=== PATIENT | male | born 1970 | race Caucasian/White ===

== ENCOUNTER 2018-07-27 20:33 | Inpatient (IN) ==
--- NOTE | 2018-07-27 20:59 | ED ---
HPI General Chief complaint: Respiratory Symptoms Stated complaint: Chest pain, SOB Time Seen by Provider: 07/27/18 20:49 Source: patient Mode of arrival: ambulatory Limitations: no limitations History of Present Illness HPI narrative: 47 YO M with PMH of CHF, A fib, CAD, current smoker presents to the ED for evaluation of 1 week history of worsening shortness of breath. He endorses a nonproductive cough and associated CP. He endorses worsening edema of the BLE. He states that he hasn't been able to smoke 2/2 SOB. He denies recent history of prolonged immobilization. He states that he hasn't taken any medications for "about 4 months" because his insurance ran out. He states that his father had an RI in his 80s. Related Data Allergies Allergy/AdvReac Type Severity Reaction Status Date / Time No Known Allergies Allergy Verified 07/09/18 01:49 Review of Systems ROS: all other systems reviewed are negative [facility] Medical History Medical History Atrial fibrillation (Acute) Congestive heart failure (CHF) (Acute) Heart disease (Acute) Social History Social History Substance History: Past History Smoking Status: Former smoker Tobacco Type: Cigarettes How Often Do You Have a Drink Containing Alcohol: Monthly or less Recent Travel in [facility] within the Last 8 Weeks: No Recent Out of Country Travel within the Last 8 Weeks: No Immunization History Tetanus Immunization: >5 Years Exam Narrative Exam Narrative: GENERAL: Well nourished, well developed anxious white male in [employer]. SKIN: Focused skin assessment warm/dry. HEAD: Atraumatic. Normocephalic. EYES: Pupils equal and round. No scleral icterus. No injection or drainage. ENT: No nasal bleeding or discharge. Mucous membranes pink and moist. NECK: Trachea midline. No JVD. CARDIOVASCULAR: Irregularly irregular rate and rhythm. No murmur appreciated. RESPIRATORY: No accessory muscle use. Coarse and wheezy lung sounds throughout. Breath sounds equal bilaterally. GASTROINTESTINAL: Abdomen soft, non-tender, nondistended. Hepatic and splenic margins not palpable. MUSCULOSKELETAL: No obvious deformities. No clubbing. No cyanosis. 2+ edema to the mid sarkar bilaterally. NEUROLOGICAL: Awake and alert. No obvious cranial nerve deficits. Motor grossly within normal limits. Normal speech. PSYCHIATRIC: Appropriate mood and affect; insight and judgment normal. Course Initial Documented Vital Signs Temperature 97.9 F 07/27/18 20:38 Pulse Rate 128 H 07/27/18 20:38 Respiratory Rate 28 H 07/27/18 20:38 Blood Pressure 137/75 07/27/18 20:38 Pulse Oximetry 98 07/27/18 20:38 Last Documented Vital Signs Temperature 97.9 F 07/27/18 20:38 Pulse Rate 119 H 07/27/18 21:14 Respiratory Rate 25 H 07/27/18 21:14 Blood Pressure 157/108 H 07/27/18 20:45 Pulse Oximetry 2 L 07/27/18 20:45 Medical Decision Making MANUEL Attestation MANUEL supervised visit: Yes Attestation: I, Dr. Paz, have reviewed the advance practice practitioner's documentation and am in agreement, met with the patient face to face, made the diagnosis, and the medical decision making was done by me. *My assessment and Findings: This patient has chest discomfort with elevated troponin. There are no ST elevations on EKG. Concern is for non-STEMI. He was given aspirin and beta-jordan and will plan to heparinize after checking coags. His A. fib is chronic. He will be put on Cardizem drip for rate control. He will be in [facility]. Case was discussed with cardiology. [facility] Narrative Medical decision making narrative: 47 YO M with PMH of CHF, A fib, CAD presents to the ED for evaluation of 1 week history of worsening SOB, non productive cough, CP and SOB. On presentation the patient is tachycardic with rate 128, tachypneic, O2 sats 98% ORA. Physical exam reveals an anxious white male, irregularly irregular heart rate, course and wheezy lung sounds and BLE edema to the mid shins. The patient was administered aspirin, duoneb x 1 and 20 mg Cardizem IV. EKG A fib, LAD. CXR without acute findings. Troponin 1.13. Dr. Paz and I discussed the patient. Plan to consult cardiology and admit. The patient is agreeable to this plan. Dr. Summers, cardiology, recommends Cardizem and Heparin drips, admission to [facility]. Cardizem and Heparin drips initiated. I spoke with Dr. Pal who agrees to accept the patient to the medical service. Please see medicine and cardiology notes for disposition. Medical Screen Exam Complete: Yes Emergency Medical Condition: Yes Differential Diagnosis Differential Diagnosis: CHF exacerbation versus PNA versus ACS versus other Lab Data Result diagrams: 07/27/18 20:50 07/27/18 20:50 Lab Results 07/27/18 07/27/18 07/27/18 Range/Units 20:50 20:50 20:50 WBC 11.0 (4.0-11.0) th/mm3 RBC 4.65 (4.50-5.90) mil/mm3 Hgb 14.8 (13.0-17.0) gm/dL Hct 43.0 (39.0-51.0) % MCV 92.5 (80.0-100.0) fL MCH 31.8 (27.0-34.0) pg MCHC 34.3 (32.0-36.0) % RDW 14.4 (11.6-17.2) % Plt Count 163 (150-450) th/mm3 MPV 9.9 (7.0-11.0) fL Neut % (Auto) 66.4 (16.0-70.0) % Lymph % (Auto) 24.4 (9.0-44.0) % [place] % (Auto) 7.0 (0.0-8.0) % Eos % (Auto) 1.2 (0.0-4.0) % Baso % (Auto) 1.0 (0.0-2.0) % Neut # (Auto) 7.3 (1.8-7.7) th/mm3 Lymph # (Auto) 2.7 (1.0-4.8) th/mm3 [place] # (Auto) 0.8 (0.0-0.9) th/mm3 Eos # (Auto) 0.1 (0.0-0.4) th/mm3 Baso # (Auto) 0.1 (0.0-0.2) th/mm3 WBC Differential . Differential Comment Auto diff final PT (9.8-11.6) sec INR Ratio APTT (23.4-31.7) sec D-Dimer Quant (PE/DVT) 0.76 H (0.00-0.50) mg/L FEU Sodium 141 (136-145) meq/L Potassium 4.1 (3.5-5.1) meq/L Chloride 109 H (98-107) meq/L Carbon Dioxide 26.0 (21.0-32.0) meq/L Anion Gap 6 (5-15) meq/L BUN 24 H (7-18) mg/dL Creatinine 1.30 (0.60-1.30) mg/dL Estimated GFR 59 L (>89) mL/min Random Glucose 118 H (74-106) mg/dL Calcium 8.5 (8.5-10.1) mg/dL Total Bilirubin 1.0 (0.2-1.0) mg/dL AST 24 (15-37) U/L ALT 31 (12-78) U/L Alkaline Phosphatase 72 (45-117) U/L Troponin I 1.13 H* (0.02-0.05) ng/mL B-Natriuretic Peptide (0-100) pg/mL Total Protein 7.4 (6.4-8.2) g/dL Albumin 3.6 (3.4-5.0) g/dL Urine Color (Yellw/Straw) Urine Clarity (Clear) Urine pH (5.0-8.5) Ur Specific [place] (1.002-1.035) Urine Protein (Neg-Trace) mg/dL Urine Glucose (UA) (Negative) mg/dL Urine Ketones (Negative) mg/dL Urine Occult Blood (Negative) Urine Nitrate (Negative) Urine Bilirubin (Negative) Urine Urobilinogen (Less than 2) mg/dL Ur Leukocyte Esterase (Negative) Urine RBC (0-3) /hpf Urine WBC (0-5) /hpf Ur Squamous Epith Cells (0-5) /hpf Urine Bacteria (None) /hpf Hyaline Casts (0-3) /lpf Urine Mucus (Occasional) /lpf Micro UA Comment Ur Microscopic Review Urine Culture Comments Urine Opiates Screen (Neg) Ur Barbiturates Screen (Neg) Ur Amphetamines Screen (Neg) U Benzodiazepines Scrn (Neg) Urine Cocaine Screen (Neg) U Cannabinoids Screen (Neg) 07/27/18 07/27/18 07/27/18 Range/Units 20:50 21:25 21:25 WBC (4.0-11.0) th/mm3 RBC (4.50-5.90) mil/mm3 Hgb (13.0-17.0) gm/dL Hct (39.0-51.0) % MCV (80.0-100.0) fL MCH (27.0-34.0) pg MCHC (32.0-36.0) % RDW (11.6-17.2) % Plt Count (150-450) th/mm3 MPV (7.0-11.0) fL Neut % (Auto) (16.0-70.0) % Lymph % (Auto) (9.0-44.0) % [place] % (Auto) (0.0-8.0) % Eos % (Auto) (0.0-4.0) % Baso % (Auto) (0.0-2.0) % Neut # (Auto) (1.8-7.7) th/mm3 Lymph # (Auto) (1.0-4.8) th/mm3 [place] # (Auto) (0.0-0.9) th/mm3 Eos # (Auto) (0.0-0.4) th/mm3 Baso # (Auto) (0.0-0.2) th/mm3 WBC Differential Differential Comment PT (9.8-11.6) sec INR Ratio APTT (23.4-31.7) sec D-Dimer Quant (PE/DVT) (0.00-0.50) mg/L FEU Sodium (136-145) meq/L Potassium (3.5-5.1) meq/L Chloride (98-107) meq/L Carbon Dioxide (21.0-32.0) meq/L Anion Gap (5-15) meq/L BUN (7-18) mg/dL Creatinine (0.60-1.30) mg/dL Estimated GFR (>89) mL/min Random Glucose (74-106) mg/dL Calcium (8.5-10.1) mg/dL Total Bilirubin (0.2-1.0) mg/dL AST (15-37) U/L ALT (12-78) U/L Alkaline Phosphatase (45-117) U/L Troponin I (0.02-0.05) ng/mL B-Natriuretic Peptide 909 H (0-100) pg/mL Total Protein (6.4-8.2) g/dL Albumin (3.4-5.0) g/dL Urine Color Yellow (Yellw/Straw) Urine Clarity Clear (Clear) Urine pH 5.0 (5.0-8.5) Ur Specific [place] 1.012 (1.002-1.035) Urine Protein Negative (Neg-Trace) mg/dL Urine Glucose (UA) Negative (Negative) mg/dL Urine Ketones Negative (Negative) mg/dL Urine Occult Blood Negative (Negative) Urine Nitrate Negative (Negative) Urine Bilirubin Negative (Negative) Urine Urobilinogen Less than 2 (Less than 2) mg/dL Ur Leukocyte Esterase Negative (Negative) Urine RBC 1 (0-3) /hpf Urine WBC Less than 1 (0-5) /hpf Ur Squamous Epith Cells <1 (0-5) /hpf Urine Bacteria Rare H (None) /hpf Hyaline Casts 4 (0-3) /lpf Urine Mucus Few H (Occasional) /lpf Micro UA Comment Culture not ind Ur Microscopic Review Not Reportable Urine Culture Comments Culture not ind Urine Opiates Screen Neg (Neg) Ur Barbiturates Screen Neg (Neg) Ur Amphetamines Screen Neg (Neg) U Benzodiazepines Scrn Neg (Neg) Urine Cocaine Screen Neg (Neg) U Cannabinoids Screen Neg (Neg) 07/27/18 Range/Units 22:18 WBC (4.0-11.0) th/mm3 RBC (4.50-5.90) mil/mm3 Hgb (13.0-17.0) gm/dL Hct (39.0-51.0) % MCV (80.0-100.0) fL MCH (27.0-34.0) pg MCHC (32.0-36.0) % RDW (11.6-17.2) % Plt Count (150-450) th/mm3 MPV (7.0-11.0) fL Neut % (Auto) (16.0-70.0) % Lymph % (Auto) (9.0-44.0) % [place] % (Auto) (0.0-8.0) % Eos % (Auto) (0.0-4.0) % Baso % (Auto) (0.0-2.0) % Neut # (Auto) (1.8-7.7) th/mm3 Lymph # (Auto) (1.0-4.8) th/mm3 [place] # (Auto) (0.0-0.9) th/mm3 Eos # (Auto) (0.0-0.4) th/mm3 Baso # (Auto) (0.0-0.2) th/mm3 WBC Differential Differential Comment PT 11.8 H (9.8-11.6) sec INR 1.2 Ratio APTT 24.4 (23.4-31.7) sec D-Dimer Quant (PE/DVT) (0.00-0.50) mg/L FEU Sodium (136-145) meq/L Potassium (3.5-5.1) meq/L Chloride (98-107) meq/L Carbon Dioxide (21.0-32.0) meq/L Anion Gap (5-15) meq/L BUN (7-18) mg/dL Creatinine (0.60-1.30) mg/dL Estimated GFR (>89) mL/min Random Glucose (74-106) mg/dL Calcium (8.5-10.1) mg/dL Total Bilirubin (0.2-1.0) mg/dL AST (15-37) U/L ALT (12-78) U/L Alkaline Phosphatase (45-117) U/L Troponin I (0.02-0.05) ng/mL B-Natriuretic Peptide (0-100) pg/mL Total Protein (6.4-8.2) g/dL Albumin (3.4-5.0) g/dL Urine Color (Yellw/Straw) Urine Clarity (Clear) Urine pH (5.0-8.5) Ur Specific [place] (1.002-1.035) Urine Protein (Neg-Trace) mg/dL Urine Glucose (UA) (Negative) mg/dL Urine Ketones (Negative) mg/dL Urine Occult Blood (Negative) Urine Nitrate (Negative) Urine Bilirubin (Negative) Urine Urobilinogen (Less than 2) mg/dL Ur Leukocyte Esterase (Negative) Urine RBC (0-3) /hpf Urine WBC (0-5) /hpf Ur Squamous Epith Cells (0-5) /hpf Urine Bacteria (None) /hpf Hyaline Casts (0-3) /lpf Urine Mucus (Occasional) /lpf Micro UA Comment Ur Microscopic Review Urine Culture Comments Urine Opiates Screen (Neg) Ur Barbiturates Screen (Neg) Ur Amphetamines Screen (Neg) U Benzodiazepines Scrn (Neg) Urine Cocaine Screen (Neg) U Cannabinoids Screen (Neg) Imaging Data Radiologist's impression: Chest X-Ray 07/27/18 20:49 CONCLUSION: Top normal heart. Clear lungs. ECG Data EKG Prior to Arrival: No Interpretation: EKG rate 140, a fib with RVR. Borderline LAD. NO acute St changes. Reviewed by Dr. Paz. Discharge Plan Discharge Disposition Patient Disposition: ED Admit(ED Internal Use Only) Discharge Order Discharge Orders: ED Use Only Admit Order (Routine); Ordered 07/27/18 Ordered By: Roberta Hernandez Physicians Team ED Provider: Nghia Paz ED Midlevel Provider: Roberta Hernandez Primary Care Provider: ROSY, Attending Provider: Alecia Pal Other Providers: Tyson Summers Discharge Interventions Interventions: Vital Signs Last Done: 07/27/18 20:45 Status ED Status: Admitted Patient
--- NOTE | 2018-07-27 21:16 | XR ---
EXAM DATE: 07/27/2018 9:13 PM EST AGE/SEX: 47 years / Male INDICATIONS: Short of breath. CLINICAL DATA: This is the patient's initial encounter. Patient reports that signs and symptoms have been present for 4 - 6 days and indicates a pain score of 2/10. MEDICAL/SURGICAL HISTORY: Congestive heart failure. . COMPARISON: No prior exams available for comparison. FINDINGS: A single AP view of the chest demonstrates the lungs to be symmetrically aerated without evidence of mass, infiltrate or effusion. Top normal heart size. No pulmonary vascular engorgement observed.. Os seous structures are intact. CONCLUSION: Top normal heart. Clear lungs. Electronically signed by: Aly Landers MD Board Certified Radiologist 07/27/2018 9:15 PM EST
[2018-07-27 21:20] LABS: Baso # (Auto) 0.1 th/mm3 (0.0-0.2); Eos # (Auto) 0.1 th/mm3 (0.0-0.4); Eos % (Auto) 1.2 % (0.0-4.0); Hemoglobin 14.8 gm/dL (13.0-17.0); Lymph # (Auto) 2.7 th/mm3 (1.0-4.8); Lymph % (Auto) 24.4 % (9.0-44.0); Mean Corpuscular HGB Conc 34.3 % (32.0-36.0); Mean Corpuscular Hemoglobin 31.8 pg (27.0-34.0); Mean Corpuscular Volume 92.5 fL (80.0-100.0); Mean Platelet Volume 9.9 fL (7.0-11.0); Mono # (Auto) 0.8 th/mm3 (0.0-0.9); Neut # (Auto) 7.3 th/mm3 (1.8-7.7); Neut % (Auto) 66.4 % (16.0-70.0); Platelet Count 163 th/mm3 (150-450); Red Blood Count 4.65 mil/mm3 (4.50-5.90); Red Cell Distribution Width 14.4 % (11.6-17.2)
[2018-07-27 21:42] LABS: Albumin 3.6 g/dL (3.4-5.0); Anion Gap 6 meq/L (5-15); Aspartate Aminotransferase 24 U/L (15-37); Blood Urea Nitrogen 24 mg/dL (7-18); Calcium 8.5 mg/dL (8.5-10.1); Chloride 109 meq/L (98-107); Glomerular Filtration Rate 59 mL/min (>89); Glucose,Random 118 mg/dL (74-106); Potassium 4.1 meq/L (3.5-5.1); Sodium 141 meq/L (136-145)
[2018-07-27 21:43] LABS: Alanine Aminotransferase 31 U/L (12-78)
[2018-07-27 21:46] LABS: Alkaline Phosphatase 72 U/L (45-117); Total Protein 7.4 g/dL (6.4-8.2)
[2018-07-27 21:49] LABS: Bacteria,Urine Rare /hpf; Bilirubin,Urine Negative (Negative); Clarity,Urine Clear (Clear); Color,Urine Yellow (Yellw/Straw); Glucose,Urine (UA) Negative (Negative); Hyaline Casts,Urine 4 /lpf (0-3); Leukocyte Esterase,Urine Negative (Negative); Mucus,Urine Few /lpf (Occasional); Nitrite,Urine Negative (Negative); Specific Gravity,Urine 1.012 (1.002-1.035); Squamous Epithelial Cell,Urine <1 /hpf (0-5)
[2018-07-27 21:50] LABS: Troponin I 1.13 ng/mL (0.02-0.05)
[2018-07-27 21:50] LABS: Amphetamine Screen,Urine Neg (Neg); Barbiturate Screen,Urine Neg (Neg); Cannabinoid Screen,Urine Neg (Neg); Cocaine Screen,Urine Neg (Neg)
[2018-07-27 21:51] LABS: Opiate Screen,Urine Neg (Neg)
[2018-07-27 22:44] LABS: Activated Partial Thrombo Time 24.4 sec (23.4-31.7); INR 1.2 Ratio; Prothrombin Time 11.8 sec (9.8-11.6)
[2018-07-27] MEDS ORDERED: Heparin 10,000 UNITS/10 ML Vial (for IV use) IV.PUSH STA (22:48)
[2018-07-27] MEDS ORDERED: Heparin Drip 25,000 UNIT/250 ML BAG IV.CONT PRN (22:48)
[2018-07-27] MEDS: dilTIAZem Inj 125 MG in Sodium Chlor 0.9% Inj 100 ML IV.CONT PRN (23:16)
[2018-07-27] MEDS ORDERED: Bisacodyl 10 MG Supp RECTAL PRN (23:54)
[2018-07-27] MEDS ORDERED: Acetaminophen 325 MG Tablet PO PRN (23:54)
--- NOTE | 2018-07-28 01:13 | P.HP ---
History of Present Illness Service: [facility] Primary Care Physician: UNKNOWN History of Present Illness: 47-year-old male with a past medical history significant for atrial fibrillation , coronary artery disease and CHF presents to the emergency department for the evaluation of bilateral lower extremity edema and shortness of breath with accompanying cough. The patient reports that he is supposed to be on Eliquis, metoprolol and Lasix however has been out of his medication for approximately 4 months due to insurance issues. He states he has had increasingly worsening bilateral lower extremity edema for the past week and corresponding shortness of breath with a nonproductive cough. He states he has chest pain but believes this is from his cough. His home visitor is in [place]. He is found to be in atrial fibrillation with RVR on his arrival to the emergency department. He denies any fevers/chills. No abdominal pain. No nausea/vomiting/diarrhea. No focal neurologic deficits. Inpatient Certification: I certify that the inpatient services were ordered in accordance with Medicare regulations governing the order. This includes certification that hospital inpatient services are reasonable and necessary and in the case of services not specified as inpatient-only under 42 CFR 419.22(n), that they are appropriately provided as inpatient services in accordance to with the 2-midnight benchmark under 43 CFR 412.3(e) Estimated Total Length of Stay (Days): 2 Plans for Post Hospital Care: Home Review of Systems All other systems reviewed negative except as stated in HPI [facility] - History History Provided By: Patient - Medical History Medical History: Medical History (Last Reviewed 07/28/18 @ 01:00 by Alecia Pal MD) Atrial fibrillation Congestive heart failure (CHF) Heart disease - Surgical History Surgical History: Surgical History (Last Updated 07/28/18 @ 01:00 by Alecia Pal MD) Status post cardiac catheterization - Family History Family History: Family History (Last Updated 07/28/18 @ 01:00 by Alecia Pal MD) Other Coronary artery disease - Tobacco History Tobacco Use In Past 30 Days: Yes Smoking Status: Former smoker Tobacco Type: Cigarettes - Alcohol History How Often Do You Have a Drink Containing Alcohol: Monthly or less - Substance Use History Substance History: Past History - Travel History Recent Travel in the [place] Within the Last 8 Weeks: No Recent Travel Out of the Country Within the Last 8 Weeks: No - Immunization History Tetanus Immunization: >5 Years Medications and Allergies Active Medications: Active Medications Acetaminophen (Tylenol) 650 mg PO Q4H PRN PRN Reason: Temp > 100.4 Al Hydroxide/Mg Hydroxide (Milk Of Magnesia Liq) 30 ml PO Q12H PRN PRN Reason: Mild Constipation Aspirin (Aspirin Chew) 162 mg PO DAILY LAMAR Bisacodyl (Dulcolax Supp) 10 mg RECTAL DAILY PRN PRN Reason: SEVERE CONSITIPATION Diltiazem HCl 125 mg/ Sodium (Chloride) 125 mls @ 5 mls/hr IV.CONT TITRATE PRN ; Protocol PRN Reason: Per Protocol Last Titration: 07/28/18 00:00 Dose: 10 mg/hr, 10 mls/hr Heparin Sodium/Dextrose (Heparin/D5w 25,000 U/250 Ml) 25,000 unit in 250 mls @ 0 mls/hr IV.CONT TITRATE PRN; Protocol PRN Reason: Per Protocol Last Admin: 07/27/18 23:11 Dose: 1,000 units/hr, 10 mls/hr Lactulose (Lactulose Liq) 30 ml PO DAILY PRN PRN Reason: SEVERE CONSITIPATION Ondansetron HCl (Zofran Inj) 4 mg IV.PUSH Q6H PRN PRN Reason: NAUSEA OR VOMITING Sennosides (Senokot) 17.2 mg PO Q12H PRN PRN Reason: Moderate Constipation Sodium Chloride (Ns Flush) 2 ml IV.FLUSH BID LAMAR Sodium Chloride (Ns Flush) 2 ml IV.FLUSH PRN PRN PRN Reason: FLUSH AFTER USING IV ACCESS Allergies Allergy/AdvReac Type Severity Reaction Status Date / Time No Known Allergies Allergy Verified 07/09/18 01:49 Exam Vital signs: Vital Signs 07/27/18 20:38 07/27/18 20:45 07/27/18 20:49 Temperature 97.9 F Pulse Rate 128 H 130 H Respiratory Rate 28 H 27 H Blood Pressure 137/75 157/108 H Pulse Oximetry 98 2 L 95 07/27/18 21:14 07/28/18 00:00 Temperature Pulse Rate 119 H 128 H Respiratory Rate 25 H 24 Blood Pressure 114/80 Pulse Oximetry 97 Intake & Output 07/27/18 07/27/18 07/28/18 06:59 18:59 06:59 Weight 136.078 kg Narrative: Gen.: No acute distress Head: Normocephalic. Atraumatic. EENT: Pupils equal round and reactive to light. Nose without drainage. Airway intact. Throat without injection. Cardiovascular: Tachycardic. Irregularly irregular rhythm. No murmurs, rubs or gallops. Respiratory: Lungs clear to auscultation bilaterally. No wheezes or rhonchi. Abdomen: Soft, nontender, nondistended. No peritoneal signs. Musculoskeletal: No gross deformities. No edema. Skin: No obvious rashes or erythema. Neuro: Sensory and motor grossly intact. Cranial nerves II through XII grossly intact. Results - Labs CBC & Chem 7: 07/27/18 20:50 07/27/18 20:50 Labs: Laboratory Results - last 24 hr 07/27/18 07/27/18 07/27/18 20:50 20:50 20:50 WBC 11.0 RBC 4.65 Hgb 14.8 Hct 43.0 MCV 92.5 MCH 31.8 MCHC 34.3 RDW 14.4 Plt Count 163 MPV 9.9 Neut % (Auto) 66.4 Lymph % (Auto) 24.4 [place] % (Auto) 7.0 Eos % (Auto) 1.2 Baso % (Auto) 1.0 Neut # (Auto) 7.3 Lymph # (Auto) 2.7 [place] # (Auto) 0.8 Eos # (Auto) 0.1 Baso # (Auto) 0.1 WBC Differential . Differential Comment Auto diff final PT INR APTT D-Dimer Quant (PE/DVT) 0.76 H Sodium 141 Potassium 4.1 Chloride 109 H Carbon Dioxide 26.0 Anion Gap 6 BUN 24 H Creatinine 1.30 Estimated GFR 59 L Random Glucose 118 H Calcium 8.5 Total Bilirubin 1.0 AST 24 ALT 31 Alkaline Phosphatase 72 Troponin I 1.13 H* B-Natriuretic Peptide Total Protein 7.4 Albumin 3.6 Urine Color Urine Clarity Urine pH Ur Specific [place] Urine Protein Urine Glucose (UA) Urine Ketones Urine Occult Blood Urine Nitrate Urine Bilirubin Urine Urobilinogen Ur Leukocyte Esterase Urine RBC Urine WBC Ur Squamous Epith Cells Urine Bacteria Hyaline Casts Urine Mucus Micro UA Comment Ur Microscopic Review Urine Culture Comments Urine Opiates Screen Ur Barbiturates Screen Ur Amphetamines Screen U Benzodiazepines Scrn Urine Cocaine Screen U Cannabinoids Screen 07/27/18 07/27/1807/27/18 20:50 21:25 21:25 WBC RBC Hgb Hct MCV MCH MCHC RDW Plt Count MPV Neut % (Auto) Lymph % (Auto) [place] % (Auto) Eos % (Auto) Baso % (Auto) Neut # (Auto) Lymph # (Auto) [place] # (Auto) Eos # (Auto) Baso # (Auto) WBC Differential Differential Comment PT INR APTT D-Dimer Quant (PE/DVT) Sodium Potassium Chloride Carbon Dioxide Anion Gap BUN Creatinine Estimated GFR Random Glucose Calcium Total Bilirubin AST ALT Alkaline Phosphatase Troponin I B-Natriuretic Peptide 909 H Total Protein Albumin Urine Color Yellow Urine Clarity Clear Urine pH 5.0 Ur Specific [place] 1.012 Urine Protein Negative Urine Glucose (UA) Negative Urine Ketones Negative Urine Occult Blood Negative Urine Nitrate Negative Urine Bilirubin Negative Urine Urobilinogen Less than 2 Ur Leukocyte Esterase Negative Urine RBC 1 Urine WBC Less than 1 Ur Squamous Epith Cells <1 Urine Bacteria Rare H Hyaline Casts 4 Urine Mucus Few H Micro UA Comment Culture not ind Ur Microscopic Review Not Reportable Urine Culture Comments Culture not ind Urine Opiates Screen Neg Ur Barbiturates Screen Neg Ur Amphetamines Screen Neg U Benzodiazepines Scrn Neg Urine Cocaine Screen Neg U Cannabinoids Screen Neg 07/27/18 22:18 WBC RBC Hgb Hct MCV MCH MCHC RDW Plt Count MPV Neut % (Auto) Lymph % (Auto) [place] % (Auto) Eos % (Auto) Baso % (Auto) Neut # (Auto) Lymph # (Auto) [place] # (Auto) Eos # (Auto) Baso # (Auto) WBC Differential Differential Comment PT 11.8 H INR 1.2 APTT 24.4 D-Dimer Quant (PE/DVT) Sodium Potassium Chloride Carbon Dioxide Anion Gap BUN Creatinine Estimated GFR Random Glucose Calcium Total Bilirubin AST ALT Alkaline Phosphatase Troponin I B-Natriuretic Peptide Total Protein Albumin Urine Color Urine Clarity Urine pH Ur Specific [place] Urine Protein Urine Glucose (UA) Urine Ketones Urine Occult Blood Urine Nitrate Urine Bilirubin Urine Urobilinogen Ur Leukocyte Esterase Urine RBC Urine WBC Ur Squamous Epith Cells Urine Bacteria Hyaline Casts Urine Mucus Micro UA Comment Ur Microscopic Review Urine Culture Comments Urine Opiates Screen Ur Barbiturates Screen Ur Amphetamines Screen U Benzodiazepines Scrn Urine Cocaine Screen U Cannabinoids Screen - Imaging Impressions Chest X-Ray 07/27/18 20:49 CONCLUSION: Top normal heart. Clear lungs. Caprini VTE Risk Assessment Caprini VTE Risk Assessment: No/Low Risk (score <= 1) Caprini Risk Assessment Model: Point Value = 1 Point Value = 2 Point Value = 3 Point Value = 5 Age 41-60 Minor surgery BMI > 25 kg/m2 Swollen legs Varicose veins or History of unexplained or recurrent spontaneous Oral contraceptives or hormone replacement Sepsis (< 1 month) Serious lung disease, including pneumonia (< 1 month) Abnormal pulmonary function Acute myocardial infarction Congestive heart failure (< 1 month) History of inflammatory bowel disease Medical patient at bed rest Age 61-74 Arthroscopic surgery Major open surgery (> 45 min) Laparoscopic surgery (> 45 min) Malignancy Confined to bed (> 72 hours) Immobilizing plaster cast Central venous access Age >= 75 History of VTE Family history of VTE Factor V Leiden Prothrombin [id number] Lupus anticoagulant Anticardiolipin antibodies Elevated serum homocysteine Heparin-induced thrombocytopenia Other congenital or acquired thrombophilia Stroke (< 1 month) Elective arthroplasty Hip, pelvis, or leg fracture Acute spinal cord injury (< 1 month) Prophylaxis Regimen: Total Risk Factor Score Risk Level Prophylaxis Regimen 0-1 Low Early ambulation 2 Moderate Order ONE of the following: *Sequential Compression Device (SCD) *Heparin 5000 units SQ BID 3-4 Higher Order ONE of the following medications: *Heparin 5000 units SQ TID *Enoxaparin/Lovenox 40 mg SQ daily (WT < 150 kg, CrCl > 30 mL/min) *Enoxaparin/Lovenox 30 mg SQ daily (WT < 150 kg, CrCl > 10-29 mL/min) *Enoxaparin/Lovenox 30 mg SQ BID (WT < 150 kg, CrCl > 30 mL/min) AND/OR *Sequential Compression Device (SCD) 5 or more Highest Order ONE of the following medications: *Heparin 5000 units SQ TID (Preferred with Epidurals) *Enoxaparin/Lovenox 40 mg SQ daily (WT < 150 kg, CrCl > 30 mL/min) *Enoxaparin/Lovenox 30 mg SQ daily (WT < 150 kg, CrCl > 10-29 mL/min) *Enoxaparin/Lovenox 30 mg SQ BID (WT < 150 kg, CrCl > 30 mL/min) AND *Sequential Compression Device (SCD) Assessment and Plan - Plan Assessment/plan: 1. NSTEMI/CAD Initial troponin 1.13 EKG shows atrial fibrillation with rapid ventricular response without ST segment elevation or depression, personally reviewed Heparin drip Etiology consulted, appreciate assistance 2. Atrial fibrillation with rapid ventricular response Patient with known history of A. fib Is supposed to be anticoagulated on Eliquis however has been out of his medication for the past 4 months Resume Eliquis Diltiazem drip -wean as tolerated Resume metoprolol 3. CHF exacerbation Patient with bilateral lower extremity edema and BNP of 909 IV Lasix FEN N.p.o. Electrolytes: Monitor and replete as needed Heparin drip
[2018-07-28] MEDS: Metoprolol Tartrate 25 MG Tablet PO SCH ×2 (01:15→10:15)
[2018-07-28] MEDS: Morphine Inj 4 MG/ML Vial IV.PUSH PRN ×4 (01:30→21:44)
[2018-07-28 04:39] LABS: Troponin I 0.93 ng/mL (0.02-0.05)
[2018-07-28 05:12] LABS: Calcium 8.6 mg/dL (8.5-10.1); Carbon Dioxide 23.4 meq/L (21.0-32.0); Potassium 4.3 meq/L (3.5-5.1)
[2018-07-28 05:30] LABS: Baso # (Auto) 0.2 th/mm3 (0.0-0.2); Eos # (Auto) 0.2 th/mm3 (0.0-0.4); Eos % (Auto) 1.4 % (0.0-4.0); Hematocrit 43.4 % (39.0-51.0); Hemoglobin 14.7 gm/dL (13.0-17.0); Lymph # (Auto) 2.8 th/mm3 (1.0-4.8); Lymph % (Auto) 23.2 % (9.0-44.0); Mean Corpuscular Hemoglobin 31.8 pg (27.0-34.0); Mean Corpuscular Volume 93.4 fL (80.0-100.0); Mean Platelet Volume 9.8 fL (7.0-11.0); Mono # (Auto) 0.7 th/mm3 (0.0-0.9); Mono % (Auto) 6.1 % (0.0-8.0); Neut # (Auto) 8.1 th/mm3 (1.8-7.7); Neut % (Auto) 67.3 % (16.0-70.0); Platelet Count 160 th/mm3 (150-450); Red Blood Count 4.64 mil/mm3 (4.50-5.90); Red Cell Distribution Width 14.8 % (11.6-17.2)
[2018-07-28 10:10] LABS: Troponin I 0.69 ng/mL (0.02-0.05)
[2018-07-28] MEDS: ALPRAZolam 0.25 MG Tablet PO PRN ×2 (10:14→20:32)
[2018-07-28] MEDS: dilTIAZem Inj 125 MG in Sodium Chlor 0.9% Inj 100 ML IV.CONT PRN (10:15)
--- NOTE | 2018-07-28 15:34 | ECG ---
Date Performed: 07/28/2018 Time Performed: 03:18:11 PTAGE: 47 years EKG: ATRIAL FIBRILLATION WITH RAPID VENTRICULAR RESPONSE WITH ABERRANT CONDUCTION OR VENTRICULAR PREMATURE COMPLEXES BORDERLINE LEFT AXIS DEVIATION ABNORMAL RHYTHM ECG Compared to PREVIOUS TRACING , PVCs are new, heart rate is somewhat slower. PREVIOUS TRACIN 018 20.53 DOCTOR: Ambrosio Rubalcava Interpretating Date/Time 07/28/2018 15:33:24
--- NOTE | 2018-07-28 15:34 | ECG ---
Date Performed: 07/27/2018 Time Performed: 20:53:59 PTAGE: 47 years EKG: ATRIAL FIBRILLATION WITH RAPID VENTRICULAR RESPONSE BORDERLINE LEFT AXIS DEVIATION ABNORMAL RHYTHM ECG NO PREVIOUS TRACING DOCTOR: Ambrosio Rubalcava Interpretating Date/Time 07/28/2018 15:32:57
[2018-07-28] MEDS ORDERED: Amiodarone Inj 150 MG in Dextrose 5% in Water Inj 97 ML IV.SIG ONE ×2 (17:00)
--- NOTE | 2018-07-28 17:03 | MB ---
cc: Vik Maher MD DATE: 07/28/2018 REASON FOR CONSULTATION: Atrial fibrillation, congestive heart failure. HISTORY OF PRESENT ILLNESS: The patient is a 47-year-old white male with a history of nonischemic cardiomyopathy, ejection fraction of 30% to 40% according to the patient, diagnosed 2 years ago in [place], with cardiac catheterization at that time showing no high-grade coronary artery disease, history of paroxysmal atrial fibrillation, who presented to the hospital with increasing shortness of breath, nonproductive cough, pedal edema. The patient states for the past few weeks he has been having increasing dyspnea with minimal exertion. Over the last few days, he has had a nonproductive cough. At times, he experiences paroxysmal nocturnal dyspnea. He became most concerned as he also developed significant orthopnea in the last several days, having to sit up to catch his breath. He denies any chest pains, except with cough. He also denies dizziness, syncope, near syncope, palpitations. He reports compliance with a no added salt diet, although he has not been on any medications for the past few months due to lack of insurance. PAST MEDICAL HISTORY: As above. No other details are currently available. CARDIAC MEDICATIONS AT HOME: None. CARDIAC MEDICATIONS HERE IN THE HOSPITAL: 1. Cardizem drip. 2. Apixaban 5 mg p.o. b.i.d. 3. Aspirin 162 mg p.o. daily. 4. Furosemide 40 mg IV b.i.d. 5. Metoprolol tartrate 25 mg p.o. b.i.d. ALLERGIES: NO KNOWN DRUG ALLERGIES. FAMILY HISTORY: There is no significant family history of early myocardial infarction. SOCIAL HISTORY: The patient quit smoking 2 weeks ago. He drinks occasional alcohol. REVIEW OF SYSTEMS: As in history of present illness, otherwise negative or noncontributory. He also denies headache, abdominal pain, melena, dyspepsia, bright red blood per rectum. PHYSICAL EXAMINATION: VITAL SIGNS: His blood pressure 116/70 with a pulse of 83, respirations 20. GENERAL: He is a well-developed, well-nourished white male, in no acute distress. HEENT: Jugular venous pressure is normal. Carotid pulses are 2+ bilaterally and without bruits. CHEST: Reveals clear lung martin. CARDIAC: He has an irregularly irregular rhythm without S3 or murmur. ABDOMEN: He has a soft, nontender, obese abdomen. Bowel sounds are present. There is no definite hepatosplenomegaly. EXTREMITIES: Reveals no clubbing or cyanosis. There is trace to 1+ pretibial edema bilaterally. DIAGNOSTIC DATA: EKG shows atrial fibrillation, poor R-wave progression, nonspecific high lateral T-wave abnormalities. Chest x-ray shows no acute disease. LABORATORY DATA: WBC 12, hemoglobin 14.7, platelets 160,000. INR 1.2. Potassium 4.3, BUN 24, creatinine 1.32. Troponin 1.13, CK 202. IMPRESSION: Atrial fibrillation, congestive heart failure, slightly abnormal troponin levels in this 47-year-old white male with a history of nonischemic cardiomyopathy apparently diagnosed 2 years ago in [place] with cardiac catheterization at that time showing no high-grade coronary artery disease and echocardiogram according to the patient showing ejection fraction of 30% to 40%. The patient also notes a history of paroxysmal atrial fibrillation, although he states he has usually no symptoms associated with this dysrhythmia. At this time, he remains in atrial fibrillation with controlled heart rates although on intravenous Cardizem and oral metoprolol. Unfortunately, he has been off all medications for the last several months including Eliquis. Overall, I doubt these slight abnormalities in troponin levels are due to acute coronary syndrome. He has had no angina symptoms. His chest pain only occurs with cough. He reports a cardiac catheterization showing only mild disease 2 years ago. EKG shows only nonspecific ST and T-wave abnormalities. His congestive heart failure appears to be mostly right-sided in nature. His chest x-ray is clear and his lungs are clear to auscultation. Also of note, on monitoring today, he did have a 14-beat run of wide complex tachycardia, most likely ventricular tachycardia. RECOMMENDATIONS: 1. Continue intravenous furosemide diuresis. 2. Continue metoprolol, increasing the dosage as much as possible. 3. Add an CHENTE inhibitor. 4. Apparently, the patient will have insurance activated on 08/09/2018, so would continue with apixaban 5 mg p.o. b.i.d. 5. In light of the nonsustained ventricular tachycardia and likely reduced ejection fraction, would recommend intravenous amiodarone. 6. Check a 2-D echo to assess his left ventricular function, which I suspect is at least moderately reduced. MD GUZMAN Maynard/vladislav , 04:35 PM , 04:48 PM [facility]
[2018-07-28] MEDS ORDERED: Metoprolol Tartrate 25 MG Tablet PO SCH (21:00)
[2018-07-29] MEDS: ALPRAZolam 0.25 MG Tablet PO PRN ×3 (01:17→21:14)
[2018-07-29 05:21] LABS: Baso % (Auto) 0.3 % (0.0-2.0); Eos % (Auto) 0.1 % (0.0-4.0); Hematocrit 47.2 % (39.0-51.0); Hemoglobin 15.9 gm/dL (13.0-17.0); Lymph # (Auto) 1.6 th/mm3 (1.0-4.8); Lymph % (Auto) 10.3 % (9.0-44.0); Mean Corpuscular HGB Conc 33.8 % (32.0-36.0); Mean Corpuscular Volume 94.5 fL (80.0-100.0); Mean Platelet Volume 10.2 fL (7.0-11.0); Mono # (Auto) 1.4 th/mm3 (0.0-0.9); Mono % (Auto) 8.7 % (0.0-8.0); Neut # (Auto) 12.8 th/mm3 (1.8-7.7); Neut % (Auto) 80.6 % (16.0-70.0); Platelet Count 107 th/mm3 (150-450); Red Blood Count 4.99 mil/mm3 (4.50-5.90); Red Cell Distribution Width 15.4 % (11.6-17.2); White Blood Count 15.9 th/mm3 (4.0-11.0)
[2018-07-29 05:49] LABS: Alanine Aminotransferase 173 U/L (12-78); Albumin 4.1 g/dL (3.4-5.0); Alkaline Phosphatase 81 U/L (45-117); Anion Gap 13 meq/L (5-15); Aspartate Aminotransferase 211 U/L (15-37); Blood Urea Nitrogen 30 mg/dL (7-18); Calcium 8.6 mg/dL (8.5-10.1); Carbon Dioxide 19.2 meq/L (21.0-32.0); Chloride 102 meq/L (98-107); Glomerular Filtration Rate 29 mL/min (>89); Glucose,Random 106 mg/dL (74-106); Potassium 5.3 meq/L (3.5-5.1); Sodium 134 meq/L (136-145); Total Protein 7.9 g/dL (6.4-8.2); Troponin I 0.54 ng/mL (0.02-0.05)
[2018-07-29 06:07] LABS: ABG PCO2 33 mmHg (38-42); ABG PO2 74 mmHG (61-120)
--- NOTE | 2018-07-29 06:22 | XR ---
EXAM DATE: 07/29/2018 5:52 AM EST AGE/SEX: 47 years / Male INDICATIONS: Infiltrate. CLINICAL DATA: This is the patient's subsequent encounter. Patient reports that signs and symptoms h ave been present for 1 week and indicates a pain score of 0/10. MEDICAL/SURGICAL HISTORY: Congestive heart failure. None. COMPARISON: [facility] [place]ST 1V SINGLE AP, 07/27/2018. . FINDINGS: A single AP view of the chest demonstrates the lungs to be symmetrically aerated without evidence of mass, infiltrate or effusion. The cardiomediastinal contours are unremarkable. Osseous structures a re intact. CONCLUSION: The lungs are clear. Electronically signed by: Giovani Mckeon MD Board Certified Radiologist 07/29/2018 6:21 AM EST
--- NOTE | 2018-07-29 08:02 | P.PNCA ---
Subjective Interval history: Somnolent. Denies CP, dyspnea, dizziness, palpitations. Medications and Allergies Active Medications: Active Medications Acetaminophen (Tylenol) 650 mg PO Q4H PRN PRN Reason: Temp > 100.4 Al Hydroxide/Mg Hydroxide (Milk Of Magnesia Liq) 30 ml PO Q12H PRN PRN Reason: Mild Constipation Albuterol (Duoneb Neb (Prn)) 1 ampul NEB Q4HR NEB PRN PRN Reason: WHEEZING Last Admin: 07/29/18 00:33 Dose: 1 ampul Alprazolam (Xanax) 0.25 mg PO Q4H PRN PRN Reason: ANXIETY Last Admin: 07/29/18 01:17 Dose: 0.25 mg Apixaban (Eliquis) 5 mg PO BID [facility] Last Admin: 07/28/18 20:32 Dose: 5 mg Aspirin (Aspirin Chew) 81 mg PO DAILY [facility] Last Admin: 07/28/18 16:33 Dose: Not Given Bisacodyl (Dulcolax Supp) 10 mg RECTAL DAILY PRN PRN Reason: SEVERE CONSITIPATION Enalapril Maleate (Vasotec) 5 mg PO DAILY [facility] Furosemide (Lasix Inj) 40 mg IV.PUSH BID@0900,1800 [facility] Last Admin: 07/28/18 17:31 Dose: 40 mg Amiodarone HCl 450 mg/ (Dextrose) 250 mls @ 33.33 mls/hr IV.CONT TITRATE PRN; Protocol PRN Reason: Per Protocol Last Titration: 07/29/18 06:27 Dose: 0.5 mg/min, 16.66 mls/hr Lactulose (Lactulose Liq) 30 ml PO DAILY PRN PRN Reason: SEVERE CONSITIPATION Metoprolol Tartrate (Lopressor) 50 mg PO BID [facility] Last Admin: 07/28/18 20:32 Dose: 50 mg Morphine Sulfate (Morphine Inj) 4 mg IV.PUSH Q4H PRN PRN Reason: pain 6-10 Last Admin: 07/28/18 21:44 Dose: 4 mg Ondansetron HCl (Zofran Inj) 4 mg IV.PUSH Q6H PRN PRN Reason: NAUSEA OR VOMITING Last Admin: 07/28/18 17:24 Dose: 4 mg Sennosides (Senokot) 17.2 mg PO Q12H PRN PRN Reason: Moderate Constipation Sodium Chloride (Ns Flush) 2 ml IV.FLUSH BID [facility] Last Admin: 07/28/18 20:35 Dose: 2 ml Sodium Chloride (Ns Flush) 2 ml IV.FLUSH PRN PRN PRN Reason: FLUSH AFTER USING IV ACCESS Allergies Allergy/AdvReac Type Severity Reaction Status Date / Time No Known Allergies Allergy Verified 07/09/18 01:49 Home Medications Medication Instructions Recorded Confirmed Type Lasix 50 mg PO DAILY 07/28/18 07/28/18 History Physical Exam Vital signs: Vital Signs 07/28/18 08:00 07/28/18 09:10 07/28/18 11:00 Temperature 98.5 F Pulse Rate 100 H 99 H Respiratory Rate 20 Blood Pressure 123/71 Pulse Oximetry 97 97 07/28/18 12:00 07/28/18 15:00 07/28/18 15:31 Temperature 97.7 F 98.0 F Pulse Rate 99 H 83 83 Respiratory Rate 22 20 Blood Pressure 155/87 H 116/71 Pulse Oximetry 93 L 98 07/28/18 19:00 07/28/18 20:00 07/28/18 21:48 Temperature 97.5 F L Pulse Rate 117 H 114 H Respiratory Rate 24 22 Blood Pressure 129/89 Pulse Oximetry 98 07/28/18 23:00 07/29/18 00:00 07/29/18 00:24 Temperature 97 F L Pulse Rate 111 H 111 H Respiratory Rate 24 Blood Pressure 116/70 Pulse Oximetry 96 97 07/29/18 00:38 07/29/18 03:00 07/29/18 04:00 Temperature 96 F L Pulse Rate 102 H 111 H 114 H Respiratory Rate 18 24 Blood Pressure 128/94 H Pulse Oximetry 94 L 94 L 95 07/29/18 06:37 07/29/18 07:27 07/29/18 07:31 Temperature Pulse Rate 111 H Respiratory Rate 23 Blood Pressure Pulse Oximetry 97 97 07/29/18 07:47 Temperature Pulse Rate Respiratory Rate 28 H Blood Pressure Pulse Oximetry 95 Intake & Output 07/28/18 07/29/18 07/29/18 18:59 06:59 18:59 Intake Total 1245 / 1245 710 / 710 Output Total 725 / 725 250 / 250 Balance 520 / 520 460 / 460 Weight 138 kg Intake: IV 345 / 345 350 / 350 Cordarone Inj 450 MG In D5W Inj 350 / 350 241 ML @ 1 MG/MIN 33.33 mls/hr IV.CONT TITRATE PRN Rx#: [id number] Heparin/D5W 25,000 U/250 mL 25, 0 / 0 000 unit In 250 ml @ Per Protocol IV.CONT TITRATE PRN Rx #:[id number] Cardizem Inj 125 MG In NS Inj 245 / 245 100 ML @ 5 MG/HR 5 mls/hr IV. CONT TITRATE PRN Rx#:[id number] Cordarone Inj 150 MG In D5W Inj 100 / 100 97 ML @ 600 mls/hr IV.SIG ONCE ONE Rx#:[id number] Oral 900 / 900 360 / 360 Output: Urine 725 / 725 250 / 250 Other: Date of Last Bowel Movement 07/27/18 # Bowel Movements 0 0 - Constitutional no acute distress, somnolent - Routine Neck Exam Absent: JVD - Routine Respiratory Exam Present: CTA bilaterally - Routine Cardiovascular Exam Present: S1, S2, irregular rhythm. Absent: murmur, gallop - Routine Abdominal Exam Present: soft, normoactive bowel sounds. Absent: tenderness, organomegaly - Routine Extremities Exam Present: edema. Absent: cyanosis, clubbing Comments: Trace to 1+ pedal edema. Results 07/29/18 03:10 07/29/18 03:10 Cardiac Enzymes 07/27/18 07/27/18 07/28/18 Range/Units 20:50 20:50 03:24 AST 24 (15-37) U/L Troponin I 1.13 H* 0.93 H* (0.02-0.05) ng/mL B-Natriuretic Peptide 909 H (0-100) pg/mL 07/28/18 07/28/18 07/29/18 Range/Units 03:24 08:32 03:10 AST 211 H (15-37) U/L Troponin I Cancelled 0.69 H* 0.54 H (0.02-0.05) ng/mL B-Natriuretic Peptide (0-100) pg/mL Coagulation 07/27/18 07/27/18 07/28/18 Range/Units 20:50 22:18 05:09 PT 11.8 H (9.8-11.6) sec APTT 24.4 26.0 (23.4-31.7) sec B-Natriuretic Peptide 909 H (0-100) pg/mL 07/28/18 Range/Units 11:23 PT (9.8-11.6) sec APTT 26.2 (23.4-31.7) sec B-Natriuretic Peptide (0-100) pg/mL CBC 07/27/18 07/28/18 07/29/18 Range/Units 20:50 05:09 03:10 WBC 11.0 12.0 H 15.9 H (4.0-11.0) th/mm3 RBC 4.65 4.64 4.99 (4.50-5.90) mil/mm3 Hgb 14.8 14.7 15.9 (13.0-17.0) gm/dL Hct 43.0 43.4 47.2 (39.0-51.0) % Plt Count 163 160 107 L D (150-450) th/mm3 Neut # (Auto) 7.3 8.1 H 12.8 H (1.8-7.7) th/mm3 Lymph # (Auto) 2.7 2.8 1.6 (1.0-4.8) th/mm3 Dukes # (Auto) 0.8 0.7 1.4 H (0.0-0.9) th/mm3 Eos # (Auto) 0.1 0.2 0.0 (0.0-0.4) th/mm3 Baso # (Auto) 0.1 0.2 0.0 (0.0-0.2) th/mm3 Comprehensive Metabolic Panel 07/27/18 07/28/18 07/29/18 Range/Units 20:50 03:24 03:10 Sodium 141 141 134 L (136-145) meq/L Potassium 4.1 4.3 5.3 H D (3.5-5.1) meq/L Chloride 109 H 108 H 102 (98-107) meq/L Carbon Dioxide 26.0 23.4 19.2 L (21.0-32.0) meq/L BUN 24 H 24 H 30 H (7-18) mg/dL Creatinine 1.30 1.32 H 2.36 H (0.60-1.30) mg/dL Calcium 8.5 8.6 8.6 (8.5-10.1) mg/dL AST 24 211 H (15-37) U/L ALT 31 173 H (12-78) U/L Alkaline Phosphatase 72 81 (45-117) U/L Total Protein 7.4 7.9 (6.4-8.2) g/dL Albumin 3.6 4.1 (3.4-5.0) g/dL Intake and Output 07/28/18 07/29/18 07/29/18 22:59 06:59 14:59 Intake Total 1120 / 1120 710 / 710 Output Total 725 / 725 250 / 250 Balance 395 / 395 460 / 460 Intake: IV 220 / 220 350 / 350 Cordarone Inj 450 MG In D5W Inj 350 / 350 241 ML @ 1 MG/MIN 33.33 mls/hr IV.CONT TITRATE PRN Rx#: [id number] Heparin/D5W 25,000 U/250 mL 25, 0 / 0 000 unit In 250 ml @ Per Protocol IV.CONT TITRATE PRN Rx #:[id number] Cardizem Inj 125 MG In NS Inj 120 / 120 100 ML @ 5 MG/HR 5 mls/hr IV. CONT TITRATE PRN Rx#:[id number] Cordarone Inj 150 MG In D5W Inj 100 / 100 97 ML @ 600 mls/hr IV.SIG ONCE ONE Rx#:[id number] Oral 900 / 900 360 / 360 Output: Urine 725 / 725 250 / 250 Other: Date of Last Bowel Movement 07/27/18 # Bowel Movements 0 0 Weight 138 kg - Imaging and Cardiology Imaging: Impressions Chest X-Ray 07/27/18 20:49 CONCLUSION: Top normal heart. Clear lungs. Chest X-Ray 07/29/18 05:32 CONCLUSION: The lungs are clear. Assessment and Plan - Assessment (1) Nonischemic cardiomyopathy Code(s): I42.8 - Other cardiomyopathies Status: Chronic Plan: Clinically stable and improved since admission. Rising renal indices now, possibly prerenal azotemia. Echo pending. RECOMMEND hold CHENTE-I, hold furosemide, follow up BMP's, continue metoprolol ( increase dosing). Dr. Summers to see as needed over the weekend. Would not discharge before Wednesday. OK to move to step down [facility] unit. (2) Nonsustained ventricular tachycardia Code(s): I47.2 - Ventricular tachycardia Status: Acute Plan: 14 beat run of very fast VT yesterday, none since. Recommend continue IV Amiodarone another 48 hours. (3) Atrial fibrillation Code(s): I48.91 - Unspecified atrial fibrillation Status: Acute Plan: Remains in atrial fib. HR's occasionally mildly elevated. Patient asymptomatic. Thromboembolic risk high. RECOMMEND increase metoprolol dosing, to continue IV Amiodarone as for his non- sustained VT, consider holding apixaban with rising renal indices. (4) Elevated troponin Code(s): R74.8 - Abnormal levels of other serum enzymes Status: Acute Plan: Minimal troponin elevations. Doubt due to ACS. No definite angina symptoms. Patient reports unremarkable cath in [place] 2 years ago. - Plan Code Status: full code Discussed Condition With: patient (3) Atrial fibrillation Qualifiers: Atrial fibrillation type: paroxysmal Qualified Code(s): I48.0 - Paroxysmal atrial fibrillation
--- NOTE | 2018-07-29 09:29 | P.PNIM ---
Subjective Interval history: Nausea present this morning. No other complaints. No chest pain. Tachycardia remains but is improved compared to time of admit. Physical Exam Vital signs: Last Vital Signs Temp 97.3 F L 07/29/18 08:11 Pulse 111 H 07/29/18 08:11 Resp 27 H 07/29/18 08:11 BP 98/67 L 07/29/18 08:11 Pulse Ox 99 07/29/18 08:11 Intake & Output 07/27/18 07/28/18 07/29/18 07/30/18 06:59 06:59 06:59 06:59 Intake Total 156 / 156 1954 Output Total 200 / 200 975 / 975 Balance -44 / -44 980 / 980 Weight 136.5 kg 138 kg Narrative: GENERAL: NAD, A&Ox3 HEAD: Normocephalic. NECK: Supple, trachea midline. No lymphadenopathy. EYES: No scleral icterus. No injection or drainage. CARDIOVASCULAR: Tachycardia rate and rhythm without murmurs, gallops, or rubs. RESPIRATORY: Breath sounds equal bilaterally. No accessory muscle use. GASTROINTESTINAL: Abdomen soft, non-tender, nondistended. MUSCULOSKELETAL: No cyanosis, or edema. SKIN: Warm and dry. NEURO: No focal neurological deficits. Results Labs CBC & Chem 7: 07/29/18 03:10 07/29/18 03:10 Imaging Imaging: Impressions Chest X-Ray 07/29/18 05:32 CONCLUSION: The lungs are clear. Assessment and Plan (1) Nonischemic cardiomyopathy: Code(s): I42.8 - Other cardiomyopathies Status: Chronic (2) Nonsustained ventricular tachycardia: Code(s): I47.2 - Ventricular tachycardia Status: Acute (3) Atrial fibrillation: Code(s): I48.91 - Unspecified atrial fibrillation Status: Acute (4) Elevated troponin: Code(s): R74.8 - Abnormal levels of other serum enzymes Status: Acute Plan 47-year-old male admitted secondary to atrial fibrillation with RVR and elevated troponins NSTEMI/CAD likely demand ischemia Initial troponin 1.13, downward trend since admission No plan for heart cath Echocardiogram pending Continue heparin drip Cardiology following Rate control Atrial fibrillation with rapid ventricular response Patient with known history of A. fib Continue Eliquis Continue amiodarone drip Follow on telemetry Possible CHF exacerbation Echocardiogram ordered May have been related to tachycardia Echocardiogram DVT prophylaxis Heparin Progress Note: Quality VTE Deep Vein Thrombosis/Pulmonary Embolism Present on Admission: No _ (1) Atrial fibrillation Qualifiers: Atrial fibrillation type: paroxysmal Qualified Code(s): I48.0 - Paroxysmal atrial fibrillation
--- NOTE | 2018-07-29 09:51 | ECG ---
Date Performed: 07/28/2018 Time Performed: 15:58:48 PTAGE: 47 years EKG: Atrial fibrillation Left axis deviation Abnormal ECG PREVIOUS TRACING : 07/28/2018 03.18 DOCTOR: Giovani Carcamo Interpretating Date/Time 07/29/2018 09:50:31
[2018-07-29 10:53] LABS: ABG Base Excess -11.8 mmol/L (-2-2); ABG PCO2 24 mmHg (38-42); ABG PO2 121 mmHG (61-120)
--- NOTE | 2018-07-29 12:22 | US ---
EXAM DATE: 07/29/2018 12:19 PM EST AGE/SEX: 47 years / Male INDICATIONS: Increased Bun and Creatinine. CLINICAL DATA: This is the patient's initial encounter. Patient reports that signs and symptoms have been present for 1 day and indicates a pain score of 4/10. MEDICAL/SURGICAL HISTORY: . Afib. CHF. . Cardiac catheterization. COMPARISON: No prior exams available for comparison. MEASUREMENTS: Right Kidney:__10.8 x 5.5 x 4.9 cm Left Kidney:__11.9 x 5.4 x 5.7 cm FINDINGS: Right Kidney: Normal echogenicity and cortical thickness. No mass or hydronephrosis. Left Kidney: Normal echogenicity and cortical thickness. No mass or hydronephrosis. Bladder: Decompressed. Not well evaluated. Other: None. CONCLUSION: 1. Normal renal ultrasound Electronically signed by: Clarence Mcduffie MD Board Certified Radiologist 07/29/2018 12:20 PM EST
[2018-07-29] MEDS ORDERED: Sodium Bicarbonate 8.4% Inj 50 MEQ/50 ML Syringe ONE (12:28)
[2018-07-29] MEDS: Sodium Bicarbonate 8.4% Inj 75 MEQ in Sod Chloride 0.9% Inj 925 ML IV.CONT SCH ×2 (13:31→16:57)
--- NOTE | 2018-07-29 16:52 | MB ---
cc: Andrea Hector MD DATE: 07/22/2018 REASON FOR CONSULTATION: Elevated BUN and creatinine with acute kidney injury. HISTORY OF PRESENT ILLNESS: This is a 47-year-old male with past medical history of ischemic heart disease, atrial fibrillation, congestive heart failure, possible chronic kidney disease. We do not have any baseline creatinine. He came to the hospital complaining of swelling of the lower leg and shortness of breath. I was called to see the patient because of elevated BUN and creatinine. The patient had creatinine of 1.3 on admission and it has gone up to 2.3. The patient denies any previous known history of renal disease, but according to him, he has off and on swelling in the legs and he takes Lasix at home. He is on other medications including metoprolol and he could not get it for the last 4-5 months because of the insurance problem, and noticed more increased swelling of his legs for the last few days. He denies taking any nonsteroid anti-inflammatory drugs. There is no history of nausea, vomiting. There is no history of diarrhea. When the patient arrived to the hospital, he was found in atrial fibrillation with rapid ventricular rate and his blood pressure has been on the lower side and lowest recorded was 94/39 today in the afternoon. His heart rate has been controlled now. Cardiology is following him. He has decreased urine output since morning, only passed 50 mL. and ultrasound did not show any urine in the bladder. The patient is not eating well. He has no nausea or vomiting. His breathing is still the same, slightly better and still has swelling in the legs. PAST MEDICAL HISTORY: Ischemic heart disease, atrial fibrillation, congestive heart failure, possible chronic kidney disease. PAST SURGICAL HISTORY: History of cardiac catheterization done in the past. REVIEW OF SYSTEMS: The patient has generalized weakness, feeling tired, has decreased appetite, occasional nausea. There is no vomiting. He has shortness of breath, more with exertion. No chest pain. No palpitation. No vomiting. No abdominal pain. No history of diarrhea. No history of dysuria or hematuria. Not taking any nonsteroid anti-inflammatory drugs. SOCIAL HISTORY: The patient is and has a past history of smoking. No history of heavy alcoholism. FAMILY HISTORY: Noncontributory. ALLERGIES: HE HAS NO KNOWN DRUG ALLERGIES. MEDICATIONS: Currently, he is on following medications: 1. Tylenol as needed. 2. DuoNeb nebulizer. 3. Milk of magnesia as needed. 4. Amiodarone infusion. 5. Eliquis 5 mg b.i.d. 6. Aspirin 81 mg once a day. 7. Dulcolax as needed. 8. Vasotec 5 mg. It is on hold. 9. Pepcid 20 mg b.i.d. 10. Lasix one dose was given. 11. Metoprolol 100 mg b.i.d. 12. Morphine sulfate as needed. 13. Zofran as needed. 14. Senokot as needed. PHYSICAL EXAMINATION: GENERAL: The patient is awake, alert. He is not in acute distress. VITAL SIGNS: Blood pressure is 94/39, temperature is 97.6, oxygen saturation is 98% on 4 liters nasal cannula. HEENT: Pupils are mid constricted. Nonicteric sclerae. Conjunctivae normal. NECK: Supple. JVD is slightly elevated. LUNGS: The patient has bilateral decreased air entry with basal rales and scattered wheezing. HEART: S1, S2. Regular rate and rhythm. ABDOMEN: Distended, soft, lax. Bladder is not palpable. There is no tenderness. EXTREMITIES: He has bilateral 2+ edema. LABORATORY DATA: WBC count is 15.9, hemoglobin 15.9, platelet count 107,000, neutrophils 88.6, eosinophils 0.1%. INR is 1.2. Last arterial blood gas showing pH of 7.35 with a pCO2 of 24, pO2 of 121. Sodium is 134, potassium 5.3, chloride 102, bicarbonate 19.2, BUN 30, creatinine 2.36. AST is 211, ALT is 173. Troponin 0.54. Urinalysis showing that there is no proteinuria. Toxicology screen was negative. IMAGING STUDIES: The patient had ultrasound of the kidneys done, which shows that his kidneys were normal in size and bladder was decompressed. Chest x-ray was done which shows that he has lung martin clear. ASSESSMENT AND PLAN: 1. Acute kidney injury. 2. Atrial fibrillation with rapid ventricular rate. 3. Congestive heart failure. 4. Fluid overload status. 5. Hypotension. 6. Shock liver with elevated liver enzymes. The patient has acute kidney injury, most likely this is related to hypotension and ATN or cardiorenal syndrome and blood pressure is borderline, so I will put him Bumex infusion and check the urine sodium and osmolality. Follow the urine output and BUN and creatinine. Echocardiogram was done, the result is pending. Discussed in detail with the patient and the at the bedside. Thank you for the consultation. Dr. Samir Hart will follow the patient over the weekend. MD RICCO Muniz/vladislav , 04:13 PM , 04:26 PM
[2018-07-29] MEDS: Metoprolol Tartrate 100 MG Tablet PO SCH ×2 (16:54→21:18)
[2018-07-29] MEDS: Bumetanide Inj 25 MG/100 ML BAG IV.CONT SCH (16:57)
--- NOTE | 2018-07-29 19:10 | ECHRPT ---
Indication: CARDIOMYOPATHY CONCLUSIONS Moderately dilated left ventricle. Wall thickness is measured at the upper limits of normal. The left ventricular systolic function is severely reduced with an estimated ejection fraction less than 20%. There is diffuse global hypokinesis with distinct regional wall motion abnormalities. The right ventricle is mildly dilated. The left atrial size is moderately dilated. The right atrial size is moderately dilated. The interatrial septum bowed from right to left, consistent with increased right atrial pressure. Mild mitral valve regurgitation. There is moderate tricuspid regurgitation. The estimated pulmonary arterial pressure is 42mmHg. Trivial pulmonary valve regurgitation. The inferior vena cava is dilated. BP: / HR: Rhythm: Atrial fibrillation MEASUREMENTS (Male / Female) Normal Values Technical Quality:Fair 2D ECHO LV Diastolic Diameter PLAX 6.2 cm 4.2 - 5.9 / 3.9 - 5.3 cm LV Systolic Diameter PLAX 5.8 cm IVS Diastolic Thickness 1.2 cm 0.6 - 1.0 / 0.6 - 0.9 cm LVPW Diastolic Thickness 1.2 cm 0.6 - 1.0 / 0.6 - 0.9 cm LV Relative Wall Thickness 0.4 RV Internal Dim ED PLAX 3.9 cm LVOT Diameter 2.0 cm Aortic Root Diameter 2.9 cm LA Systolic Diameter LX 5.1 cm 3.0 - 4.0 / 2.7 - 3.8 cm M-MODE AV Cusp Separation MM 2.1 cm DOPPLER AV Peak Velocity 98.8 cm/s AV Peak Gradient 3.9 mmHg LVOT Peak Velocity 57.3 cm/s LVOT Peak Gradient 1.3 mmHg AV Area Cont Eq pk 1.8 cm Mitral E Point Velocity 88.1 cm/s Mitral A Point Velocity 72.6 cm/s Mitral E to A Ratio 1.2 LV E' Lateral Velocity 11.3 cm/s Mitral E to LV E' Lateral Ratio 7.8 LV E' Septal Velocity 7.5 cm/s Mitral E to LV E' Septal Ratio 11.7 TR Peak Velocity 261.0 cm/s TR Peak Gradient 27.2 mmHg FINDINGS LEFT VENTRICLE Moderately dilated left ventricle. Wall thickness is measured at the upper limits of normal. The left ventricular systolic function is severely reduced with an estimated ejection fraction less than 20%. There is diffuse global hypokinesis with distinct regional wall motion abnormalities. RIGHT VENTRICLE The right ventricle is mildly dilated. LEFT ATRIUM The left atrial size is moderately dilated. RIGHT ATRIUM The right atrial size is moderately dilated. ATRIAL SEPTUM The interatrial septum bowed from right to left, consistent with increased right atrial pressure. MITRAL VALVE Mild mitral valve regurgitation. TRICUSPID VALVE There is moderate tricuspid regurgitation. The estimated pulmonary arterial pressure is 42mmHg. PULMONARY VALVE The pulmonary valve is not well visualized. Trivial pulmonary valve regurgitation. VESSELS The inferior vena cava is dilated. Buddy Edmonds MD, FACC, [facility] [place] (Electronically Signed) Final Date:29 July 2018 19:09
[2018-07-29] MEDS: Famotidine 20 MG Tablet PO SCH (21:14)
[2018-07-30 05:34] LABS: Baso % (Auto) 0.2 % (0.0-2.0); Hematocrit 39.4 % (39.0-51.0); Hemoglobin 13.4 gm/dL (13.0-17.0); Lymph # (Auto) 1.7 th/mm3 (1.0-4.8); Lymph % (Auto) 7.5 % (9.0-44.0); Mean Corpuscular HGB Conc 33.9 % (32.0-36.0); Mean Corpuscular Hemoglobin 31.9 pg (27.0-34.0); Mean Corpuscular Volume 94.2 fL (80.0-100.0); Mean Platelet Volume 10.3 fL (7.0-11.0); Mono % (Auto) 4.5 % (0.0-8.0); Neut # (Auto) 19.2 th/mm3 (1.8-7.7); Neut % (Auto) 87.8 % (16.0-70.0); Platelet Count 83 th/mm3 (150-450); Red Blood Count 4.18 mil/mm3 (4.50-5.90); Red Cell Distribution Width 15.2 % (11.6-17.2); White Blood Count 21.9 th/mm3 (4.0-11.0)
[2018-07-30 06:17] LABS: Alanine Aminotransferase 5418 U/L (12-78); Albumin 3.6 g/dL (3.4-5.0); Alkaline Phosphatase 81 U/L (45-117); Anion Gap 12 meq/L (5-15); Aspartate Aminotransferase 8660 U/L (15-37); Blood Urea Nitrogen 62 mg/dL (7-18); Calcium 7.6 mg/dL (8.5-10.1); Carbon Dioxide 22.6 meq/L (21.0-32.0); Chloride 95 meq/L (98-107); Glomerular Filtration Rate 16 mL/min (>89); Glucose,Random 113 mg/dL (74-106); Potassium 4.4 meq/L (3.5-5.1); Sodium 130 meq/L (136-145); Total Protein 6.2 g/dL (6.4-8.2)
[2018-07-30] MEDS: Famotidine 20 MG Tablet PO SCH ×2 (08:18→21:08)
[2018-07-30] MEDS: Metoprolol Tartrate 100 MG Tablet PO SCH ×2 (08:18→21:09)
[2018-07-30 08:51] LABS: Lymphocytes 10 % (9-44); Monocytes 3 % (0-8); Myelocytes 1 % (0-0)
[2018-07-30 08:52] LABS: Platelet Morphology Normal (Normal)
[2018-07-30] MEDS: ALPRAZolam 0.25 MG Tablet PO PRN ×3 (09:23→22:25)
--- NOTE | 2018-07-30 11:02 | P.PNIM ---
Subjective Interval history: Creatinine worsened compared to yesterday. However, patient reports that he is having increased urine output. Mild abdominal pain. LFTs have significantly increased. Physical Exam Vital signs: Last Vital Signs Temp 98.2 F 07/30/18 08:00 Pulse 92 H 07/30/18 09:00 Resp 18 07/30/18 08:00 BP 104/62 07/30/18 08:00 Pulse Ox 98 07/30/18 09:38 Intake & Output 07/28/18 07/29/18 07/30/18 07/31/18 06:59 06:59 06:59 06:59 Intake Total 156 / 156 1955 / 1955 1830 / 1830 Output Total 200 / 200 975 / 975 880 / 880 Balance -44 / -44 980 / 980 950 / 950 Weight 136.5 kg 138 kg 140 kg Narrative: GENERAL: NAD, A&Ox3 HEAD: Normocephalic. NECK: Supple, trachea midline. No lymphadenopathy. EYES: No scleral icterus. No injection or drainage. CARDIOVASCULAR: Tachycardia rate and rhythm without murmurs, gallops, or rubs. RESPIRATORY: Breath sounds equal bilaterally. No accessory muscle use. GASTROINTESTINAL: Abdomen soft, non-tender, nondistended. MUSCULOSKELETAL: No cyanosis, or edema. SKIN: Warm and dry. NEURO: No focal neurological deficits. Results Labs CBC & Chem 7: 07/30/18 04:43 07/30/18 04:43 Imaging Imaging: Impressions Abdomen/Bladder Ultrasound 07/29/18 00:00 CONCLUSION: 1. Normal renal ultrasound Assessment and Plan (1) Nonischemic cardiomyopathy: Code(s): I42.8 - Other cardiomyopathies Status: Chronic (2) Nonsustained ventricular tachycardia: Code(s): I47.2 - Ventricular tachycardia Status: Acute (3) Atrial fibrillation: Code(s): I48.91 - Unspecified atrial fibrillation Status: Acute (4) Elevated troponin: Code(s): R74.8 - Abnormal levels of other serum enzymes Status: Acute Plan 47-year-old male admitted secondary to atrial fibrillation with RVR and elevated troponins Heart rate improved. LFTs have increased and creatinine has increased. Follow LFTs. Follow renal function. Obtain MRI of abdomen to evaluate liver. NSTEMI/CAD likely demand ischemia Initial troponin 1.13, downward trend since admission No plan for heart cath Echocardiogram pending Continue heparin drip Cardiology following Rate control Atrial fibrillation with rapid ventricular response Patient with known history of A. fib Continue Eliquis Continue amiodarone drip Follow on telemetry Possible CHF exacerbation Echocardiogram ordered May have been related to tachycardia Echocardiogram DVT prophylaxis Heparin Progress Note: Quality VTE Deep Vein Thrombosis/Pulmonary Embolism Present on Admission: No _ (1) Atrial fibrillation Qualifiers: Atrial fibrillation type: paroxysmal Qualified Code(s): I48.0 - Paroxysmal atrial fibrillation
[2018-07-30] MEDS: Sodium Bicarbonate 8.4% Inj 75 MEQ in Sod Chloride 0.9% Inj 925 ML IV.CONT SCH (12:06)
--- NOTE | 2018-07-30 14:58 | P.PNNP ---
Subjective Interval history: No acute complaints reports increased UOP Physical Exam Vital signs: Vital Signs 07/29/18 15:05 07/29/18 16:41 07/29/18 19:00 Temperature 97.5 F L Pulse Rate 89 92 H 79 Respiratory Rate 25 H Blood Pressure 110/56 L Pulse Oximetry 98 99 100 07/29/18 20:00 07/29/18 21:00 07/29/18 21:54 Temperature 97.7 F Pulse Rate 92 H 90 88 Respiratory Rate 20 17 Blood Pressure 103/62 Pulse Oximetry 100 07/29/18 22:00 07/29/18 23:00 07/29/18 23:16 Temperature Pulse Rate 92 H 89 Respiratory Rate Blood Pressure Pulse Oximetry 100 07/30/18 00:00 07/30/18 03:00 07/30/18 04:00 Temperature 97.8 F 98.1 F Pulse Rate 81 89 Respiratory Rate 18 18 Blood Pressure 104/69 106/72 Pulse Oximetry 100 100 99 07/30/18 07:00 07/30/18 08:00 07/30/18 09:00 Temperature 98.2 F Pulse Rate 89 92 H Respiratory Rate 18 Blood Pressure 104/62 Pulse Oximetry 99 99 07/30/18 09:38 07/30/18 10:00 07/30/18 11:00 Temperature Pulse Rate 90 88 Respiratory Rate Blood Pressure Pulse Oximetry 98 95 07/30/18 12:00 07/30/18 13:00 07/30/18 14:00 Temperature 98.0 F Pulse Rate 88 88 86 Respiratory Rate 18 Blood Pressure 104/68 Pulse Oximetry 96 Intake & Output 07/29/18 07/30/18 07/30/18 18:59 06:59 18:59 Intake Total 1350 / 1350 480 / 480 1250 / 1250 Output Total 100 / 100 780 / 780 Balance 1250 / 1250 -300 / -300 1250 / 1250 Weight 140 kg Intake: IV 150 / 150 1250 / 1250 Cordarone Inj 450 MG In D5W Inj 150 / 150 250 / 250 241 ML @ 1 MG/MIN 33.33 mls/hr IV.CONT TITRATE PRN Rx#: [id number] Sodium Bicarbonate 8.4% Inj 75 1000 / 1000 MEQ In NS Inj 925 ML @ 50 mls/ hr IV.CONT .Q20H [facility] Rx#: [id number] Oral 1200 / 1200 480 / 480 Output: Urine 100 / 100 780 / 780 Other: # Voids 2 # Bowel Movements 0 0 - Constitutional no acute distress - Routine HEENT Exam Head: Present: normocephalic Eye: Present: EOMI ENT: Present: mucous membranes moist - Routine Neck Exam Present: supple - Routine Respiratory Exam Present: decreased breath sounds - Routine Abdominal Exam Present: soft - Routine Exam Perineum Description: Intact - Routine Skin Exam Present: intact - Routine Neurological Exam Present: alert, oriented X3 - Detailed Neurological Exam: Coma Scale Eye Opening: Spontaneous - Routine Psychiatric Exam Present: normal affect Assessment and Plan - Assessment (1) BRIAN (acute kidney injury) Code(s): N17.9 - Acute kidney failure, unspecified Status: Acute Plan: ASSESSMENT AND PLAN: 1. Acute kidney injury. 2. Atrial fibrillation with rapid ventricular rate. 3. Congestive heart failure. 4. Fluid overload status. 5. Hypotension. 6. Shock liver with elevated liver enzymes. BRIAN secondary to hypotension, with underlying cardio-renal component EF < 20% Possible non-oliguric ATN Elevated LFTs suggestive of shock liver Creatinine 1.3 -> 2.3 -> 3.9 On bumex 0.5mg/hour 800cc UOP/24 hours Continue with diuresis for now as tolerated K+, HCO3 stable No acute indications for dialysis at this time - continue to monitor for improvement in renal function. Follow labs, UOP (2) Atrial fibrillation Code(s): I48.91 - Unspecified atrial fibrillation Status: Acute Qualifiers: Atrial fibrillation type: paroxysmal Qualified Code(s): I48.0 - Paroxysmal atrial fibrillation Plan: on amiodarone, follow with caridiology
[2018-07-30] MEDS: Bumetanide Inj 25 MG/100 ML BAG IV.CONT SCH (17:19)
[2018-07-30] MEDS: Morphine Inj 4 MG/ML Vial IV.PUSH PRN (21:09)
[2018-07-31] MEDS: ALPRAZolam 0.25 MG Tablet PO PRN ×4 (02:35→20:52)
[2018-07-31] MEDS: Morphine Inj 4 MG/ML Vial IV.PUSH PRN ×3 (04:45→17:31)
[2018-07-31 06:45] LABS: Baso # (Auto) 0.1 th/mm3 (0.0-0.2); Baso % (Auto) 0.5 % (0.0-2.0); Eos % (Auto) 0.3 % (0.0-4.0); Hematocrit 42.6 % (39.0-51.0); Hemoglobin 14.6 gm/dL (13.0-17.0); Lymph # (Auto) 1.2 th/mm3 (1.0-4.8); Lymph % (Auto) 8.9 % (9.0-44.0); Mean Corpuscular HGB Conc 34.3 % (32.0-36.0); Mean Corpuscular Hemoglobin 31.6 pg (27.0-34.0); Mean Corpuscular Volume 92.1 fL (80.0-100.0); Mean Platelet Volume 9.7 fL (7.0-11.0); Mono # (Auto) 0.6 th/mm3 (0.0-0.9); Neut % (Auto) 86.3 % (16.0-70.0); Platelet Count 90 th/mm3 (150-450); Red Blood Count 4.63 mil/mm3 (4.50-5.90); Red Cell Distribution Width 14.9 % (11.6-17.2); White Blood Count 13.9 th/mm3 (4.0-11.0)
[2018-07-31 07:01] LABS: Activated Partial Thrombo Time 29.4 sec (23.4-31.7); INR 2.6 Ratio
[2018-07-31 07:22] LABS: Alanine Aminotransferase 4780 U/L (12-78); Albumin 3.5 g/dL (3.4-5.0); Alkaline Phosphatase 107 U/L (45-117); Anion Gap 8 meq/L (5-15); Aspartate Aminotransferase 3428 U/L (15-37); Blood Urea Nitrogen 56 mg/dL (7-18); Calcium 8.7 mg/dL (8.5-10.1); Carbon Dioxide 34.3 meq/L (21.0-32.0); Chloride 94 meq/L (98-107); Glomerular Filtration Rate 28 mL/min (>89); Glucose,Random 103 mg/dL (74-106); Potassium 3.6 meq/L (3.5-5.1); Sodium 136 meq/L (136-145); Total Protein 6.7 g/dL (6.4-8.2)
[2018-07-31] MEDS: Sodium Bicarbonate 8.4% Inj 75 MEQ in Sod Chloride 0.9% Inj 925 ML IV.CONT SCH ×2 (07:58→17:30)
[2018-07-31 07:59] LABS: Platelet Morphology Normal (Normal)
[2018-07-31] MEDS: Famotidine 20 MG Tablet PO SCH ×2 (07:59→20:52)
[2018-07-31] MEDS: Metoprolol Tartrate 100 MG Tablet PO SCH ×2 (08:00→20:52)
--- NOTE | 2018-07-31 12:39 | P.PN ---
Subjective Interval history: Follow-up nonischemic cardiomyopathy/nonsustained ventricular tachycardia/A. fib /acute systolic CHF exacerbation July 31, 2018-patient seen and examined, endorses shortness of breath but denies any chest pain. Physical Exam Vital signs: Vital Signs 07/30/18 13:00 07/30/18 14:00 07/30/18 15:00 Temperature 98.7 F Pulse Rate 88 86 89 Respiratory Rate 18 Blood Pressure 106/70 Pulse Oximetry 96 07/30/18 16:00 07/30/18 17:00 07/30/18 18:00 Temperature Pulse Rate 90 92 H 94 H Respiratory Rate Blood Pressure Pulse Oximetry 07/30/18 19:00 07/30/18 20:00 07/30/18 21:00 Temperature 98.9 F Pulse Rate 88 96 H 94 H Respiratory Rate 20 Blood Pressure 97/61 L Pulse Oximetry 95 95 07/30/18 22:00 07/30/18 23:00 07/31/18 00:00 Temperature 98.3 F Pulse Rate 88 90 94 H Respiratory Rate 18 Blood Pressure 103/65 Pulse Oximetry 97 07/31/18 01:00 07/31/18 02:00 07/31/18 03:00 Temperature 97.5 F L Pulse Rate 90 89 92 H Respiratory Rate 20 Blood Pressure 105/76 Pulse Oximetry 95 07/31/18 04:00 07/31/18 05:00 07/31/18 06:00 Temperature Pulse Rate 96 H 92 H 100 H Respiratory Rate Blood Pressure Pulse Oximetry 07/31/18 07:00 07/31/18 08:00 07/31/18 09:00 Temperature 98.6 F Pulse Rate 81 81 84 Respiratory Rate 22 Blood Pressure 98/67 L Pulse Oximetry 95 95 07/31/18 09:12 07/31/18 10:00 07/31/18 11:00 Temperature 97.8 F Pulse Rate 80 81 Respiratory Rate 20 Blood Pressure 99/80 L Pulse Oximetry 95 96 07/31/18 12:00 Temperature Pulse Rate 85 Respiratory Rate Blood Pressure Pulse Oximetry Intake & Output 07/30/18 07/31/18 07/31/18 18:59 06:59 18:59 Intake Total 2425 / 2425 800 / 800 1250 / 1250 Output Total 1800 / 1800 5700 / 5700 Balance 625 / 625 -4900 / -4900 1250 / 1250 Weight 135.4 kg Intake: IV 1350 / 1350 1250 / 1250 Cordarone Inj 450 MG In D5W Inj 250 / 250 250 / 250 241 ML @ 1 MG/MIN 33.33 mls/hr IV.CONT TITRATE PRN Rx#: [id number] Bumex Inj 25 mg In 100 ml @ 0.5 100 / 100 MG/HR 2 mls/hr IV.CONT .Q24H [facility] Rx#:[id number] Sodium Bicarbonate 8.4% Inj 75 1000 / 1000 1000 / 1000 MEQ In NS Inj 925 ML @ 50 mls/ hr IV.CONT .Q20H [facility] Rx#: [id number] Oral 1075 / 1075 800 / 800 Output: Urine 1800 / 1800 5700 / 5700 Other: # Bowel Movements 0 0 Narrative: GENERAL: NAD SKIN: Warm and dry. HEAD: Normocephalic. EYES: No scleral icterus. No injection or drainage. NECK: Supple, trachea midline. No JVD or lymphadenopathy. CARDIOVASCULAR: Regular rate and rhythm without murmurs, gallops, or rubs. RESPIRATORY: Breath sounds equal bilaterally. No accessory muscle use. GASTROINTESTINAL: Abdomen soft, non-tender, nondistended. MUSCULOSKELETAL: No cyanosis, +trace edema. BACK: Nontender without obvious deformity. No CVA tenderness. Results - Labs CBC & Chem 7: 07/31/18 06:31 07/31/18 06:31 Laboratory Results - last 24 hr 07/31/18 07/31/18 07/31/18 06:31 06:31 06:31 WBC 13.9 H RBC 4.63 Hgb 14.6 Hct 42.6 MCV 92.1 MCH 31.6 MCHC 34.3 RDW 14.9 Plt Count 90 L MPV 9.7 Prelim Diff (Auto) Slide review pending Neut % (Auto) 86.3 H Lymph % (Auto) 8.9 L [place] % (Auto) 4.0 Eos % (Auto) 0.3 Baso % (Auto) 0.5 Neut # (Auto) 12.0 H Lymph # (Auto) 1.2 [place] # (Auto) 0.6 Eos # (Auto) 0.0 Baso # (Auto) 0.1 WBC Differential . Diff Scan Auto diff confirmed Differential Comment . Platelet Estimate Low L Platelet Morphology Normal PT 26.0 H D INR 2.6 APTT 29.4 Sodium 136 Potassium 3.6 D Chloride 94 L Carbon Dioxide 34.3 H D Anion Gap 8 BUN 56 H Creatinine 2.46 H Estimated GFR 28 L Random Glucose 103 Calcium 8.7 D Total Bilirubin 3.3 H AST 3428 H ALT 4780 H Alkaline Phosphatase 107 Ammonia Total Protein 6.7 Albumin 3.5 07/31/18 06:31 WBC RBC Hgb Hct MCV MCH MCHC RDW Plt Count MPV Prelim Diff (Auto) Neut % (Auto) Lymph % (Auto) [place] % (Auto) Eos % (Auto) Baso % (Auto) Neut # (Auto) Lymph # (Auto) [place] # (Auto) Eos # (Auto) Baso # (Auto) WBC Differential Diff Scan Differential Comment Platelet Estimate Platelet Morphology PT INR APTT Sodium Potassium Chloride Carbon Dioxide Anion Gap BUN Creatinine Estimated GFR Random Glucose Calcium Total Bilirubin AST ALT Alkaline Phosphatase Ammonia 57 H Total Protein Albumin Assessment and Plan - Assessment (1) Nonischemic cardiomyopathy Code(s): I42.8 - Other cardiomyopathies Status: Chronic (2) Nonsustained ventricular tachycardia Code(s): I47.2 - Ventricular tachycardia Status: Acute (3) Atrial fibrillation Code(s): I48.91 - Unspecified atrial fibrillation Status: Acute (4) Elevated troponin Code(s): R74.8 - Abnormal levels of other serum enzymes Status: Acute - Plan 47-year-old man with Nonischemic cardiomyopathy Currently on Toprol-XL 100 mg twice daily, aspirin CHENTE inhibitor currently on hold secondary to worsening renal function Management per cardiology Nonsustained ventricular tachycardia Currently on IV amiodarone (end date today July 31, 2018) Management per cardiology Atrial fibrillation with RVR Currently on amiodarone IV, beta-jordan, Eliquis Management per cardiology Acute systolic congestive heart failure Currently on IV Bumex. Lasix on hold Continue with beta-jordan Acute kidney injury Renal indices improving Management per nephrology Transaminitis Secondary to likely amiodarone, which should be discontinued today Monitor LFTs (3) Atrial fibrillation Qualifiers: Atrial fibrillation type: paroxysmal Qualified Code(s): I48.0 - Paroxysmal atrial fibrillation
--- NOTE | 2018-07-31 13:09 | P.PNNP ---
Subjective Interval history: Some fatigue and shortness of breath ongoing Physical Exam Vital signs: Vital Signs 07/30/18 14:00 07/30/18 15:00 07/30/18 16:00 Temperature 98.7 F Pulse Rate 86 89 90 Respiratory Rate 18 Blood Pressure 106/70 Pulse Oximetry 96 07/30/18 17:00 07/30/18 18:00 07/30/18 19:00 Temperature 98.9 F Pulse Rate 92 H 94 H 88 Respiratory Rate 20 Blood Pressure 97/61 L Pulse Oximetry 95 07/30/18 20:00 07/30/18 21:00 07/30/18 22:00 Temperature Pulse Rate 96 H 94 H 88 Respiratory Rate Blood Pressure Pulse Oximetry 95 07/30/18 23:00 07/31/18 00:00 07/31/18 01:00 Temperature 98.3 F Pulse Rate 90 94 H 90 Respiratory Rate 18 Blood Pressure 103/65 Pulse Oximetry 97 07/31/18 02:00 07/31/18 03:00 07/31/18 04:00 Temperature 97.5 F L Pulse Rate 89 92 H 96 H Respiratory Rate 20 Blood Pressure 105/76 Pulse Oximetry 95 07/31/18 05:00 07/31/18 06:00 07/31/18 07:00 Temperature 98.6 F Pulse Rate 92 H 100 H 81 Respiratory Rate 22 Blood Pressure 98/67 L Pulse Oximetry 95 07/31/18 08:00 07/31/18 09:00 07/31/18 09:12 Temperature Pulse Rate 81 84 Respiratory Rate Blood Pressure Pulse Oximetry 95 95 07/31/18 10:00 07/31/18 11:00 07/31/18 12:00 Temperature 97.8 F Pulse Rate 80 81 85 Respiratory Rate 20 Blood Pressure 99/80 L Pulse Oximetry 96 Intake & Output 07/30/18 07/31/18 07/31/18 18:59 06:59 18:59 Intake Total 2425 / 2425 800 / 800 1250 / 1250 Output Total 1800 / 1800 5700 / 5700 Balance 625 / 625 -4900 / -4900 1250 / 1250 Weight 135.4 kg Intake: IV 1350 / 1350 1250 / 1250 Cordarone Inj 450 MG In D5W Inj 250 / 250 250 / 250 241 ML @ 1 MG/MIN 33.33 mls/hr IV.CONT TITRATE PRN Rx#: [id number] Bumex Inj 25 mg In 100 ml @ 0.5 100 / 100 MG/HR 2 mls/hr IV.CONT .Q24H [facility] Rx#:[id number] Sodium Bicarbonate 8.4% Inj 75 1000 / 1000 1000 / 1000 MEQ In NS Inj 925 ML @ 50 mls/ hr IV.CONT .Q20H [facility] Rx#: [id number] Oral 1075 / 1075 800 / 800 Output: Urine 1800 / 1800 5700 / 5700 Other: # Bowel Movements 0 0 - Constitutional no acute distress - Routine HEENT Exam Head: Present: normocephalic Eye: Present: EOMI ENT: Present: mucous membranes moist - Routine Neck Exam Present: supple - Routine Respiratory Exam Present: decreased breath sounds - Routine Cardiovascular Exam Present: RRR - Routine Abdominal Exam Present: soft - Routine Skin Exam Present: intact - Routine Neurological Exam Present: alert, oriented X3 - Detailed Neurological Exam: Coma Scale Eye Opening: Spontaneous - Routine Psychiatric Exam Present: normal affect Assessment and Plan - Assessment (1) BRIAN (acute kidney injury) Code(s): N17.9 - Acute kidney failure, unspecified Status: Acute Plan: ASSESSMENT AND PLAN: 1. Acute kidney injury. 2. Atrial fibrillation with rapid ventricular rate. 3. Congestive heart failure. 4. Fluid overload status. 5. Hypotension. 6. Shock liver with elevated liver enzymes. BRIAN secondary to hypotension, with underlying cardio-renal component EF < 20% Possible non-oliguric ATN Elevated LFTs suggestive of shock liver Creatinine 1.3 -> 2.3 -> 3.9-> 2.4 today On bumex 0.5mg/hour -> 7.5L UOP over 24 hours Alkalosis today Will decrease bumex to 2mg IV BID, continue to adjust bumex dosing based on UOP , creatinine No need for HD at this point, continue diuresis. (2) Atrial fibrillation Code(s): I48.91 - Unspecified atrial fibrillation Status: Acute Qualifiers: Atrial fibrillation type: paroxysmal Qualified Code(s): I48.0 - Paroxysmal atrial fibrillation Plan: on amiodarone, follow with caridiology
--- NOTE | 2018-07-31 14:36 | P.PNCA ---
Subjective Interval history: Asked to see by Dr. Aldana for follow up for Dr. Maher Telemetry showing AFib with controlled rates Patient overall feels well, decreased SOB, no chest pain Medications and Allergies Active Medications: Active Medications Acetaminophen (Tylenol) 650 mg PO Q4H PRN PRN Reason: Temp > 100.4 Al Hydroxide/Mg Hydroxide (Milk Of Magnesia Liq) 30 ml PO Q12H PRN PRN Reason: Mild Constipation Albuterol (Duoneb Neb (Prn)) 1 ampul NEB Q4HR NEB PRN PRN Reason: WHEEZING Last Admin: 07/29/18 21:52 Dose: 1 ampul Alprazolam (Xanax) 0.25 mg PO Q4H PRN PRN Reason: ANXIETY Last Admin: 07/31/18 08:00 Dose: 0.25 mg Apixaban (Eliquis) 5 mg PO BID [facility] Last Admin: 07/31/18 08:00 Dose: 5 mg Aspirin (Aspirin Chew) 81 mg PO DAILY [facility] Last Admin: 07/31/18 07:59 Dose: 81 mg Bisacodyl (Dulcolax Supp) 10 mg RECTAL DAILY PRN PRN Reason: SEVERE CONSITIPATION Bumetanide (Bumex Inj) 2 mg IV.PUSH BID@0900,1800 [facility] Calcium Carbonate (Tums Chew) 500 mg CHEW Q4H PRN PRN Reason: HEARTBURN Last Admin: 07/30/18 22:25 Dose: 500 mg Enalapril Maleate (Vasotec) 5 mg PO DAILY [facility] Famotidine (Pepcid) 10 mg PO BID [facility] Last Admin: 07/31/18 07:59 Dose: 10 mg Amiodarone HCl 450 mg/ (Dextrose) 250 mls @ 33.33 mls/hr IV.CONT TITRATE PRN; Protocol PRN Reason: Per Protocol Last Admin: 07/31/18 08:05 Dose: 0.5 mg/min, 16.66 mls/hr Sodium Bicarbonate 75 meq/ (Sodium Chloride) 1,000 mls @ 50 mls/hr IV.CONT .Q20H [facility] Last Admin: 07/31/18 07:58 Dose: 50 mls/hr Lactulose (Lactulose Liq) 30 ml PO DAILY PRN PRN Reason: SEVERE CONSITIPATION Metoprolol Tartrate (Lopressor) 100 mg PO BID [facility] Last Admin: 07/31/18 08:00 Dose: 100 mg Morphine Sulfate (Morphine Inj) 2 mg IV.PUSH Q4H PRN PRN Reason: pain 6-10 Ondansetron HCl (Zofran Inj) 4 mg IV.PUSH Q6H PRN PRN Reason: NAUSEA OR VOMITING Last Admin: 07/29/18 09:16 Dose: 4 mg Sennosides (Senokot) 17.2 mg PO Q12H PRN PRN Reason: Moderate Constipation Sodium Chloride (Ns Flush) 2 ml IV.FLUSH BID [facility] Last Admin: 07/31/18 08:00 Dose: 2 ml Sodium Chloride (Ns Flush) 2 ml IV.FLUSH PRN PRN PRN Reason: FLUSH AFTER USING IV ACCESS Allergies Allergy/AdvReac Type Severity Reaction Status Date / Time No Known Allergies Allergy Verified 07/09/18 01:49 Home Medications Medication Instructions Recorded Confirmed Type Lasix 50 mg PO DAILY 07/28/18 07/28/18 History Physical Exam Vital signs: Vital Signs 07/30/18 15:00 07/30/18 16:00 07/30/18 17:00 Temperature 98.7 F Pulse Rate 89 90 92 H Respiratory Rate 18 Blood Pressure 106/70 Pulse Oximetry 96 07/30/18 18:00 07/30/18 19:00 07/30/18 20:00 Temperature 98.9 F Pulse Rate 94 H 88 96 H Respiratory Rate 20 Blood Pressure 97/61 L Pulse Oximetry 95 95 07/30/18 21:00 07/30/18 22:00 07/30/18 23:00 Temperature 98.3 F Pulse Rate 94 H 88 90 Respiratory Rate 18 Blood Pressure 103/65 Pulse Oximetry 97 07/31/18 00:00 07/31/18 01:00 07/31/18 02:00 Temperature Pulse Rate 94 H 90 89 Respiratory Rate Blood Pressure Pulse Oximetry 07/31/18 03:00 07/31/18 04:00 07/31/18 05:00 Temperature 97.5 F L Pulse Rate 92 H 96 H 92 H Respiratory Rate 20 Blood Pressure 105/76 Pulse Oximetry 95 07/31/18 06:00 07/31/18 07:00 07/31/18 08:00 Temperature 98.6 F Pulse Rate 100 H 81 81 Respiratory Rate 22 Blood Pressure 98/67 L Pulse Oximetry 95 95 07/31/18 09:00 07/31/18 09:12 07/31/18 10:00 Temperature Pulse Rate 84 80 Respiratory Rate Blood Pressure Pulse Oximetry 95 07/31/18 11:00 07/31/18 12:00 07/31/18 13:00 Temperature 97.8 F Pulse Rate 81 85 90 Respiratory Rate 20 Blood Pressure 99/80 L Pulse Oximetry 96 07/31/18 13:36 Temperature Pulse Rate 93 H Respiratory Rate Blood Pressure Pulse Oximetry Intake & Output 07/30/18 07/31/18 07/31/18 18:59 06:59 18:59 Intake Total 2425 / 2425 800 / 800 1250 / 1250 Output Total 1800 / 1800 5700 / 5700 Balance 625 / 625 -4900 / -4900 1250 / 1250 Weight 135.4 kg Intake: IV 1350 / 1350 1250 / 1250 Cordarone Inj 450 MG In D5W Inj 250 / 250 250 / 250 241 ML @ 1 MG/MIN 33.33 mls/hr IV.CONT TITRATE PRN Rx#: [id number] Bumex Inj 25 mg In 100 ml @ 0.5 100 / 100 MG/HR 2 mls/hr IV.CONT .Q24H [facility] Rx#:[id number] Sodium Bicarbonate 8.4% Inj 75 1000 / 1000 1000 / 1000 MEQ In NS Inj 925 ML @ 50 mls/ hr IV.CONT .Q20H [facility] Rx#: [id number] Oral 1075 / 1075 800 / 800 Output: Urine 1800 / 1800 5700 / 5700 Other: # Bowel Movements 0 0 Narrative: GENERAL: NAD SKIN: Warm and dry. HEAD: Normocephalic. EYES: No scleral icterus. No injection or drainage. NECK: Supple, trachea midline. No JVD or lymphadenopathy. CARDIOVASCULAR: Regular rate and rhythm without murmurs, gallops, or rubs. RESPIRATORY: Breath sounds equal bilaterally. No accessory muscle use. GASTROINTESTINAL: Abdomen soft, non-tender, nondistended. MUSCULOSKELETAL: No cyanosis, +trace edema. BACK: Nontender without obvious deformity. No CVA tenderness. Results 07/31/18 06:31 07/31/18 06:31 Cardiac Enzymes 07/30/18 07/31/18 Range/Units 04:43 06:31 AST 8660 H 3428 H (15-37) U/L Coagulation 07/31/18 Range/Units 06:31 PT 26.0 H D (9.8-11.6) sec APTT 29.4 (23.4-31.7) sec CBC 07/30/18 07/31/18 Range/Units 04:43 06:31 WBC 21.9 H 13.9 H (4.0-11.0) th/mm3 RBC 4.18 L 4.63 (4.50-5.90) mil/mm3 Hgb 13.4 D 14.6 (13.0-17.0) gm/dL Hct 39.4 42.6 (39.0-51.0) % Plt Count 83 L 90 L (150-450) th/mm3 Neut # (Auto) 19.2 H 12.0 H (1.8-7.7) th/mm3 Lymph # (Auto) 1.7 1.2 (1.0-4.8) th/mm3 [place] # (Auto) 1.0 H 0.6 (0.0-0.9) th/mm3 Eos # (Auto) 0.0 0.0 (0.0-0.4) th/mm3 Baso # (Auto) 0.0 0.1 (0.0-0.2) th/mm3 Comprehensive Metabolic Panel 07/30/18 07/31/18 Range/Units 04:43 06:31 Sodium 130 L 136 (136-145) meq/L Potassium 4.4 D 3.6 D (3.5-5.1) meq/L Chloride 95 L 94 L (98-107) meq/L Carbon Dioxide 22.6 34.3 H D (21.0-32.0) meq/L BUN 62 H 56 H (7-18) mg/dL Creatinine 3.91 H 2.46 H (0.60-1.30) mg/dL Calcium 7.6 L D 8.7 D (8.5-10.1) mg/dL AST 8660 H 3428 H (15-37) U/L ALT 5418 H 4780 H (12-78) U/L Alkaline Phosphatase 81 107 (45-117) U/L Total Protein 6.2 L D 6.7 (6.4-8.2) g/dL Albumin 3.6 3.5 (3.4-5.0) g/dL Intake and Output 07/30/18 07/31/18 07/31/18 22:59 06:59 14:59 Intake Total 1175 / 1175 800 / 800 1250 / 1250 Output Total 1800 / 1800 5700 / 5700 Balance -625 / -625 -4900 / -4900 1250 / 1250 Intake: IV 100 / 100 1250 / 1250 Cordarone Inj 450 MG In D5W Inj 250 / 250 241 ML @ 1 MG/MIN 33.33 mls/hr IV.CONT TITRATE PRN Rx#: [id number] Bumex Inj 25 mg In 100 ml @ 0.5 100 / 100 MG/HR 2 mls/hr IV.CONT .Q24H [facility] Rx#:[id number] Sodium Bicarbonate 8.4% Inj 75 1000 / 1000 MEQ In NS Inj 925 ML @ 50 mls/ hr IV.CONT .Q20H [facility] Rx#: [id number] Oral 1075 / 1075 800 / 800 Output: Urine 1800 / 1800 5700 / 5700 Other: # Bowel Movements 0 0 Weight 135.4 kg Assessment and Plan - Assessment (1) Nonischemic cardiomyopathy Code(s): I42.8 - Other cardiomyopathies Status: Chronic Plan: Clinically stable and improved since admission. Creatinine decreasing, increased urine output overnight RECOMMEND hold CHENTE-I, continue metoprolol (increase dosing). (2) Nonsustained ventricular tachycardia Code(s): I47.2 - Ventricular tachycardia Status: Acute Plan: No further episodes. Will need to stop Amiodarone due to LFT elevation (3) Atrial fibrillation Code(s): I48.91 - Unspecified atrial fibrillation Status: Acute Plan: Remains in atrial fib. HR's mostly controlled. Patient asymptomatic. Thromboembolic risk high. RECOMMEND Con't metoprolol. Will have to stop Amiodarone due to elevated LFTs, unfortunately not a great candidate for Digoxin due to elevated creatine, Cardizem due to poor EF, will continue on BB therapy, if difficult to control then may need Esmolol drip. Con't on Eliquis for now, but will have to watch with liver dysfunction for concern for bleeding. (4) Elevated troponin Code(s): R74.8 - Abnormal levels of other serum enzymes Status: Acute Plan: Minimal troponin elevations. Doubt due to ACS. No definite angina symptoms. Patient reports unremarkable cath in [place] 2 years ago. (3) Atrial fibrillation Qualifiers: Atrial fibrillation type: paroxysmal Qualified Code(s): I48.0 - Paroxysmal atrial fibrillation
--- NOTE | 2018-07-31 14:52 | MR ---
EXAM DATE: 07/31/2018 2:36 PM EST AGE/SEX: 47 years / Male INDICATIONS: . Elevated liver enzymes. Acute renal failure. CLINICAL DATA: This is the patient's initial encounter. Patient reports that signs and symptoms have been present for 1 day and indicates a pain score of 0/10. MEDICAL/SURGICAL HISTORY: Congestive heart failure. Hypertension. Appendectomy. COMPARISON: No prior exams available for comparison. TECHNIQUE: Multiplanar, multisequence images of the abdomen was performed without contrast. FINDINGS: Liver: The liver is homogeneous and normal in signal intensity. Parenchymal signal is normal with no focal abnormalities. There is no biliary ductal dilatation. Gallbladder: No gallstones seen. Spleen: The spleen is unremarkable. Pancreas: The pancreas is unremarkable. Adrenals: The adrenal glands appear normal. Kidneys: Both kidneys appear normal with symmetric nephrograms and no focal parenchymal abnormalities . There is no hydronephrosis on either side. Retroperitoneum: The aorta is unremarkable. There is no pathologic abdominal lymphadenopathy. CONCLUSION: Negative noncontrast MRI examination. Electronically signed by: Sandeep Rodriguez MD Board Certified Radiologist 07/31/2018 2:51 PM EST
[2018-08-01] MEDS: Morphine Inj 4 MG/ML Vial IV.PUSH PRN (01:01)
[2018-08-01 05:40] LABS: Alanine Aminotransferase 3073 U/L (12-78); Albumin 3.2 g/dL (3.4-5.0); Alkaline Phosphatase 108 U/L (45-117); Anion Gap 7 meq/L (5-15); Aspartate Aminotransferase 1032 U/L (15-37); Blood Urea Nitrogen 42 mg/dL (7-18); Calcium 9.2 mg/dL (8.5-10.1); Carbon Dioxide 38.9 meq/L (21.0-32.0); Chloride 92 meq/L (98-107); Glomerular Filtration Rate 40 mL/min (>89); Glucose,Random 110 mg/dL (74-106); Potassium 3.1 meq/L (3.5-5.1); Sodium 138 meq/L (136-145); Total Protein 6.5 g/dL (6.4-8.2)
[2018-08-01] MEDS: Sodium Bicarbonate 8.4% Inj 75 MEQ in Sod Chloride 0.9% Inj 925 ML IV.CONT SCH ×2 (06:00→12:06)
[2018-08-01] MEDS: Famotidine 20 MG Tablet PO SCH ×2 (08:59→21:21)
[2018-08-01] MEDS: Metoprolol Tartrate 100 MG Tablet PO SCH ×2 (09:00→21:22)
--- NOTE | 2018-08-01 11:00 | P.PN ---
Subjective Interval history: Follow-up nonischemic cardiomyopathy/nonsustained ventricular tachycardia/A. fib /acute systolic CHF exacerbation July 31, 2018-patient seen and examined, endorses shortness of breath but denies any chest pain. August 01, 2018-patient seen and examined, denies any chest pain or shortness of breath, complains of minimal lower extremity swelling. Patient alert and oriented x3. LFTs trending down. Physical Exam Vital signs: Vital Signs 07/31/18 11:00 07/31/18 12:00 07/31/18 13:00 Temperature 97.8 F Pulse Rate 81 85 90 Respiratory Rate 20 Blood Pressure 99/80 L Pulse Oximetry 96 07/31/18 13:36 07/31/18 15:00 07/31/18 15:50 Temperature 97.6 F Pulse Rate 93 H 80 80 Respiratory Rate 23 Blood Pressure 102/78 Pulse Oximetry 95 07/31/18 17:00 07/31/18 17:21 07/31/18 17:52 Temperature Pulse Rate 82 80 Respiratory Rate 18 Blood Pressure Pulse Oximetry 07/31/18 19:00 07/31/18 19:52 07/31/18 20:00 Temperature 98.7 F Pulse Rate 93 H 93 H 93 H Respiratory Rate 18 Blood Pressure 93/70 L Pulse Oximetry 96 96 07/31/18 20:45 07/31/18 21:00 07/31/18 22:00 Temperature Pulse Rate 93 H 84 87 Respiratory Rate 20 Blood Pressure 103/72 Pulse Oximetry 96 07/31/18 23:00 08/01/18 00:00 08/01/18 00:30 Temperature 98.5 F Pulse Rate 96 H 84 103 H Respiratory Rate 20 Blood Pressure 106/57 L Pulse Oximetry 96 96 08/01/18 01:00 08/01/18 01:03 08/01/18 02:00 Temperature Pulse Rate 92 H 88 Respiratory Rate 18 Blood Pressure Pulse Oximetry 08/01/18 03:00 08/01/18 04:00 08/01/18 05:00 Temperature 98.5 F Pulse Rate 81 81 92 H Respiratory Rate 18 Blood Pressure 100/71 Pulse Oximetry 96 96 08/01/18 06:00 08/01/18 07:00 08/01/18 08:00 Temperature 98.7 F Pulse Rate 92 H 84 98 H Respiratory Rate 18 Blood Pressure 104/79 Pulse Oximetry 95 95 08/01/18 08:57 08/01/18 09:00 Temperature Pulse Rate 96 H Respiratory Rate Blood Pressure Pulse Oximetry 95 Intake & Output 07/31/18 08/01/18 08/01/18 18:59 06:59 18:59 Intake Total 3850 / 3850 1720 / 1720 Output Total 5800 / 5800 2250 / 2250 Balance -1950 / -1950 -530 / -530 Weight 134 kg Intake: IV 2600 / 2600 1000 / 1000 Cordarone Inj 450 MG In D5W Inj 500 / 500 241 ML @ 1 MG/MIN 33.33 mls/hr IV.CONT TITRATE PRN Rx#: [id number] Bumex Inj 25 mg In 100 ml @ 0.5 100 / 100 MG/HR 2 mls/hr IV.CONT .Q24H [facility] Rx#:[id number] Sodium Bicarbonate 8.4% Inj 75 2000 / 2000 1000 / 1000 MEQ In NS Inj 925 ML @ 50 mls/ hr IV.CONT .Q20H [facility] Rx#: [id number] Oral 1250 / 1250 720 / 720 Output: Urine 5800 / 5800 2250 / 2250 Other: Date of Last Bowel Movement 07/31/18 Narrative: GENERAL: NAD SKIN: Warm and dry. HEAD: Atraumatic. Normocephalic. EYES: Pupils equal and round. No scleral icterus. No injection or drainage. ENT: No nasal bleeding or discharge. Mucous membranes pink and moist. NECK: Trachea midline. No JVD. CARDIOVASCULAR: Regular rate and rhythm. RESPIRATORY: No accessory muscle use. Clear to auscultation. Breath sounds equal bilaterally. GASTROINTESTINAL: Abdomen soft, non-tender, nondistended. Hepatic and splenic margins not palpable. MUSCULOSKELETAL: Extremities without clubbing, cyanosis. +Trace BLE edema. No obvious deformities. NEUROLOGICAL: Awake and alert. No obvious cranial nerve deficits. Motor grossly within normal limits. Five out of 5 muscle strength in the arms and legs. Normal speech. PSYCHIATRIC: Appropriate mood and affect; insight and judgment normal. Results - Labs CBC & Chem 7: 07/31/18 06:31 08/01/18 04:18 Laboratory Results - last 24 hr 08/01/18 04:18 Sodium 138 Potassium 3.1 L Chloride 92 L Carbon Dioxide 38.9 H Anion Gap 7 BUN 42 H Creatinine 1.82 H Estimated GFR 40 L Random Glucose 110 H Calcium 9.2 Total Bilirubin 3.6 H AST 1032 H ALT 3073 H Alkaline Phosphatase 108 Total Protein 6.5 Albumin 3.2 L - Imaging Impressions Abdomen MRI 07/31/18 00:00 CONCLUSION: Negative noncontrast MRI examination. - Procedures None Assessment and Plan - Assessment (1) Nonischemic cardiomyopathy Code(s): I42.8 - Other cardiomyopathies Status: Chronic (2) Nonsustained ventricular tachycardia Code(s): I47.2 - Ventricular tachycardia Status: Acute (3) Atrial fibrillation Code(s): I48.91 - Unspecified atrial fibrillation Status: Acute (4) Elevated troponin Code(s): R74.8 - Abnormal levels of other serum enzymes Status: Acute - Plan 47-year-old man with Nonischemic cardiomyopathy Currently on Toprol-XL 100 mg twice daily, aspirin CHENTE inhibitor currently on hold secondary to worsening renal function. Management per cardiology Nonsustained ventricular tachycardia IV amiodarone discontinued yesterday July 31, 2018 secondary to worsening LFTs May require LifeVest Currently on Toprol-XL 100 mg twice daily Management per cardiology Atrial fibrillation with RVR Currently on beta-jordan, Eliquis Management per cardiology Acute systolic congestive heart failure Currently on IV Bumex. Will switch to p.o. Bumex on discharge. Lasix has been discontinued Continue with beta-jordan Acute kidney injury Renal indices improving Management per nephrology Transaminitis Secondary to amiodarone which was discontinued yesterday 07/31/18 LFTs trending down Monitor LFTs Perform walk test 08/01/18 (3) Atrial fibrillation Qualifiers: Atrial fibrillation type: paroxysmal Qualified Code(s): I48.0 - Paroxysmal atrial fibrillation
--- NOTE | 2018-08-01 11:18 | P.PNCA ---
Subjective Interval history: Denies CP, dyspnea, dizziness, palpitations, nausea, abdominal pain. Medications and Allergies Active Medications: Active Medications Acetaminophen (Tylenol) 650 mg PO Q4H PRN PRN Reason: Temp > 100.4 Al Hydroxide/Mg Hydroxide (Milk Of Magnesia Liq) 30 ml PO Q12H PRN PRN Reason: Mild Constipation Albuterol (Duoneb Neb (Prn)) 1 ampul NEB Q4HR NEB PRN PRN Reason: WHEEZING Last Admin: 07/29/18 21:52 Dose: 1 ampul Alprazolam (Xanax) 0.25 mg PO Q4H PRN PRN Reason: ANXIETY Last Admin: 07/31/18 20:52 Dose: 0.25 mg Apixaban (Eliquis) 5 mg PO BID [facility] Last Admin: 08/01/18 08:59 Dose: 5 mg Aspirin (Aspirin Chew) 81 mg PO DAILY [facility] Last Admin: 08/01/18 09:00 Dose: 81 mg Bisacodyl (Dulcolax Supp) 10 mg RECTAL DAILY PRN PRN Reason: SEVERE CONSITIPATION Bumetanide (Bumex) 1 mg PO BID@0900,1800 [facility] Calcium Carbonate (Tums Chew) 500 mg CHEW Q4H PRN PRN Reason: HEARTBURN Last Admin: 07/30/18 22:25 Dose: 500 mg Enalapril Maleate (Vasotec) 5 mg PO DAILY [facility] Famotidine (Pepcid) 10 mg PO BID [facility] Last Admin: 08/01/18 08:59 Dose: 10 mg Lactulose (Lactulose Liq) 30 ml PO DAILY PRN PRN Reason: SEVERE CONSITIPATION Metoprolol Tartrate (Lopressor) 100 mg PO BID [facility] Last Admin: 08/01/18 09:00 Dose: 100 mg Morphine Sulfate (Morphine Inj) 2 mg IV.PUSH Q4H PRN PRN Reason: pain 6-10 Last Admin: 08/01/18 01:01 Dose: 2 mg Ondansetron HCl (Zofran Inj) 4 mg IV.PUSH Q6H PRN PRN Reason: NAUSEA OR VOMITING Last Admin: 07/29/18 09:16 Dose: 4 mg Sennosides (Senokot) 17.2 mg PO Q12H PRN PRN Reason: Moderate Constipation Sodium Chloride (Ns Flush) 2 ml IV.FLUSH BID [facility] Last Admin: 08/01/18 09:00 Dose: 2 ml Sodium Chloride (Ns Flush) 2 ml IV.FLUSH PRN PRN PRN Reason: FLUSH AFTER USING IV ACCESS Allergies Allergy/AdvReac Type Severity Reaction Status Date / Time No Known Allergies Allergy Verified 07/09/18 01:49 Home Medications Medication Instructions Recorded Confirmed Type Lasix 50 mg PO DAILY 07/28/18 07/28/18 History Physical Exam Vital signs: Vital Signs 07/31/18 12:00 07/31/18 13:00 07/31/18 13:36 Temperature Pulse Rate 85 90 93 H Respiratory Rate Blood Pressure Pulse Oximetry 07/31/18 15:00 07/31/18 15:50 07/31/18 17:00 Temperature 97.6 F Pulse Rate 80 80 82 Respiratory Rate 23 Blood Pressure 102/78 Pulse Oximetry 95 07/31/18 17:21 07/31/18 17:52 07/31/18 19:00 Temperature Pulse Rate 80 93 H Respiratory Rate 18 Blood Pressure Pulse Oximetry 07/31/18 19:52 07/31/18 20:00 07/31/18 20:45 Temperature 98.7 F Pulse Rate 93 H 93 H 93 H Respiratory Rate 18 20 Blood Pressure 93/70 L 103/72 Pulse Oximetry 96 96 96 07/31/18 21:00 07/31/18 22:00 07/31/18 23:00 Temperature Pulse Rate 84 87 96 H Respiratory Rate Blood Pressure Pulse Oximetry 96 08/01/18 00:00 08/01/18 00:30 08/01/18 01:00 Temperature 98.5 F Pulse Rate 84 103 H 92 H Respiratory Rate 20 Blood Pressure 106/57 L Pulse Oximetry 96 08/01/18 01:03 08/01/18 02:00 08/01/18 03:00 Temperature Pulse Rate 88 81 Respiratory Rate 18 Blood Pressure Pulse Oximetry 96 08/01/18 04:00 08/01/18 05:00 08/01/18 06:00 Temperature 98.5 F Pulse Rate 81 92 H 92 H Respiratory Rate 18 Blood Pressure 100/71 Pulse Oximetry 96 08/01/18 07:00 08/01/18 08:00 08/01/18 08:57 Temperature 98.7 F Pulse Rate 84 98 H Respiratory Rate 18 Blood Pressure 104/79 Pulse Oximetry 95 95 95 08/01/18 09:00 Temperature Pulse Rate 96 H Respiratory Rate Blood Pressure Pulse Oximetry Intake & Output 07/31/18 08/01/18 08/01/18 18:59 06:59 18:59 Intake Total 3850 / 3850 1720 / 1720 Output Total 5800 / 5800 2250 / 2250 Balance -1950 / -1950 -530 / -530 Weight 134 kg Intake: IV 2600 / 2600 1000 / 1000 Cordarone Inj 450 MG In D5W Inj 500 / 500 241 ML @ 1 MG/MIN 33.33 mls/hr IV.CONT TITRATE PRN Rx#: [id number] Bumex Inj 25 mg In 100 ml @ 0.5 100 / 100 MG/HR 2 mls/hr IV.CONT .Q24H [facility] Rx#:[id number] Sodium Bicarbonate 8.4% Inj 75 2000 / 2000 1000 / 1000 MEQ In NS Inj 925 ML @ 50 mls/ hr IV.CONT .Q20H [facility] Rx#: [id number] Oral 1250 / 1250 720 / 720 Output: Urine 5800 / 5800 2250 / 2250 Other: Date of Last Bowel Movement 07/31/18 - Constitutional no acute distress - Routine Neck Exam Absent: JVD - Routine Respiratory Exam Present: CTA bilaterally - Routine Cardiovascular Exam Present: RRR, S1, S2. Absent: murmur, gallop - Routine Abdominal Exam Present: soft, normoactive bowel sounds. Absent: tenderness, organomegaly - Routine Extremities Exam Present: edema. Absent: cyanosis, clubbing Comments: 1+ pretibial edema Results 07/31/18 06:31 08/01/18 04:18 Cardiac Enzymes 07/31/18 08/01/18 Range/Units 06:31 04:18 AST 3428 H 1032 H (15-37) U/L Coagulation 07/31/18 Range/Units 06:31 PT 26.0 H D (9.8-11.6) sec APTT 29.4 (23.4-31.7) sec CBC 07/31/18 Range/Units 06:31 WBC 13.9 H (4.0-11.0) th/mm3 RBC 4.63 (4.50-5.90) mil/mm3 Hgb 14.6 (13.0-17.0) gm/dL Hct 42.6 (39.0-51.0) % Plt Count 90 L (150-450) th/mm3 Neut # (Auto) 12.0 H (1.8-7.7) th/mm3 Lymph # (Auto) 1.2 (1.0-4.8) th/mm3 [place] # (Auto) 0.6 (0.0-0.9) th/mm3 Eos # (Auto) 0.0 (0.0-0.4) th/mm3 Baso # (Auto) 0.1 (0.0-0.2) th/mm3 Comprehensive Metabolic Panel 07/31/18 08/01/18 Range/Units 06:31 04:18 Sodium 136 138 (136-145) meq/L Potassium 3.6 D 3.1 L (3.5-5.1) meq/L Chloride 94 L 92 L (98-107) meq/L Carbon Dioxide 34.3 H D 38.9 H (21.0-32.0) meq/L BUN 56 H 42 H (7-18) mg/dL Creatinine 2.46 H 1.82 H (0.60-1.30) mg/dL Calcium 8.7 D 9.2 (8.5-10.1) mg/dL AST 3428 H 1032 H (15-37) U/L ALT 4780 H 3073 H (12-78) U/L Alkaline Phosphatase 107 108 (45-117) U/L Total Protein 6.7 6.5 (6.4-8.2) g/dL Albumin 3.5 3.2 L (3.4-5.0) g/dL Intake and Output 07/31/18 08/01/18 08/01/18 22:59 06:59 14:59 Intake Total 2250 / 2250 1720 / 1720 Output Total 5800 / 5800 2250 / 2250 Balance -3550 / -3550 -530 / -530 Intake: IV 1000 / 1000 1000 / 1000 Sodium Bicarbonate 8.4% Inj 75 1000 / 1000 1000 / 1000 MEQ In NS Inj 925 ML @ 50 mls/ hr IV.CONT .Q20H [facility] Rx#: [id number] Oral 1250 / 1250 720 / 720 Output: Urine 5800 / 5800 2250 / 2250 Other: Date of Last Bowel Movement 07/31/18 Weight 134 kg - Imaging and Cardiology Imaging: Impressions Abdomen MRI 07/31/18 00:00 CONCLUSION: Negative noncontrast MRI examination. Assessment and Plan - Assessment (1) Nonischemic cardiomyopathy Code(s): I42.8 - Other cardiomyopathies Status: Chronic Plan: Clinically stable. Renal and hepatic indices slowly improving. Mild pedal edema persists. RECOMMEND no CHENTE-I or ARB with his renal insufficiency, continue metoprolol. In light of the patient's severely reduced EF and nonsustained VT, recommend a Life Vest external defibrillator, order placed. (2) Nonsustained ventricular tachycardia Code(s): I47.2 - Ventricular tachycardia Status: Acute Plan: No further episodes. Amiodarone stopped due to elevation in LFT's. In light of the patient's severely reduced EF and nonsustained VT, recommend a Life Vest external defibrillator, order placed (3) Atrial fibrillation Code(s): I48.91 - Unspecified atrial fibrillation Status: Acute Plan: Remains in atrial fib. HR's mostly controlled. Patient asymptomatic. Thromboembolic risk high. RECOMMEND Continue metoprolol. Amiodarone stopped due to elevation in LFTs. Continue on Eliquis for now, but reduce dosage to 2.5 mg bid and will have to watch with liver dysfunction for concern for bleeding. (4) Elevated troponin Code(s): R74.8 - Abnormal levels of other serum enzymes Status: Acute Plan: Minimal troponin elevations. Doubt due to ACS. No definite angina symptoms. Patient reports unremarkable cath in [place] 2 years ago. - Plan Code Status: full Discussed Condition With: patient and (3) Atrial fibrillation Qualifiers: Atrial fibrillation type: paroxysmal Qualified Code(s): I48.0 - Paroxysmal atrial fibrillation
--- NOTE | 2018-08-01 16:26 | P.PNNP ---
Subjective Interval history: Patient seen in AM, no specific complain. Physical Exam Vital signs: Vital Signs 07/31/18 17:00 07/31/18 17:21 07/31/18 17:52 Temperature Pulse Rate 82 80 Respiratory Rate 18 Blood Pressure Pulse Oximetry 07/31/18 19:00 07/31/18 19:52 07/31/18 20:00 Temperature 98.7 F Pulse Rate 93 H 93 H 93 H Respiratory Rate 18 Blood Pressure 93/70 L Pulse Oximetry 96 96 07/31/18 20:45 07/31/18 21:00 07/31/18 22:00 Temperature Pulse Rate 93 H 84 87 Respiratory Rate 20 Blood Pressure 103/72 Pulse Oximetry 96 07/31/18 23:00 08/01/18 00:00 08/01/18 00:30 Temperature 98.5 F Pulse Rate 96 H 84 103 H Respiratory Rate 20 Blood Pressure 106/57 L Pulse Oximetry 96 96 08/01/18 01:00 08/01/18 01:03 08/01/18 02:00 Temperature Pulse Rate 92 H 88 Respiratory Rate 18 Blood Pressure Pulse Oximetry 08/01/18 03:00 08/01/18 04:00 08/01/18 05:00 Temperature 98.5 F Pulse Rate 81 81 92 H Respiratory Rate 18 Blood Pressure 100/71 Pulse Oximetry 96 96 08/01/18 06:00 08/01/18 07:00 08/01/18 08:00 Temperature 98.7 F Pulse Rate 92 H 84 98 H Respiratory Rate 18 Blood Pressure 104/79 Pulse Oximetry 95 95 08/01/18 08:57 08/01/18 09:00 08/01/18 10:00 Temperature Pulse Rate 96 H 92 H Respiratory Rate Blood Pressure Pulse Oximetry 95 08/01/18 11:00 08/01/18 12:00 08/01/18 13:00 Temperature 98.0 F Pulse Rate 97 H 96 H 83 Respiratory Rate 18 Blood Pressure 118/80 Pulse Oximetry 94 L 08/01/18 14:00 08/01/18 15:00 08/01/18 16:00 Temperature 97.5 F L Pulse Rate 92 H 82 90 Respiratory Rate 16 Blood Pressure 108/68 Pulse Oximetry 92 L Intake & Output 07/31/18 08/01/18 08/01/18 18:59 06:59 18:59 Intake Total 3850 / 3850 1720 / 1720 500 / 500 Output Total 5800 / 5800 2250 / 2250 Balance -1950 / -1950 -530 / -530 500 / 500 Weight 134 kg Intake: IV 2600 / 2600 1000 / 1000 500 / 500 Cordarone Inj 450 MG In D5W Inj 500 / 500 241 ML @ 1 MG/MIN 33.33 mls/hr IV.CONT TITRATE PRN Rx#: [id number] Bumex Inj 25 mg In 100 ml @ 0.5 100 / 100 MG/HR 2 mls/hr IV.CONT .Q24H [facility] Rx#:[id number] Sodium Bicarbonate 8.4% Inj 75 2000 / 2000 1000 / 1000 500 / 500 MEQ In NS Inj 925 ML @ 50 mls/ hr IV.CONT .Q20H [facility] Rx#: [id number] Oral 1250 / 1250 720 / 720 Output: Urine 5800 / 5800 2250 / 2250 Other: Date of Last Bowel Movement 07/31/18 Narrative: GENERAL: NAD SKIN: Warm and dry. HEAD: Atraumatic. Normocephalic. EYES: Pupils equal and round. No scleral icterus. No injection or drainage. ENT: No nasal bleeding or discharge. Mucous membranes pink and moist. NECK: Trachea midline. No JVD. CARDIOVASCULAR: Regular rate and rhythm. RESPIRATORY: No accessory muscle use. Clear to auscultation. Breath sounds equal bilaterally. GASTROINTESTINAL: Abdomen soft, non-tender, nondistended. Hepatic and splenic margins not palpable. MUSCULOSKELETAL: Extremities without clubbing, cyanosis. +Trace BLE edema. No obvious deformities. NEUROLOGICAL: Awake and alert. No obvious cranial nerve deficits. Motor grossly within normal limits. Five out of 5 muscle strength in the arms and legs. Normal speech. PSYCHIATRIC: Appropriate mood and affect; insight and judgment normal. Assessment and Plan - Assessment (1) BRIAN (acute kidney injury) Code(s): N17.9 - Acute kidney failure, unspecified Status: Acute Plan: ASSESSMENT AND PLAN: 1. Acute kidney injury. 2. Atrial fibrillation with rapid ventricular rate. 3. Congestive heart failure. 4. Fluid overload status. 5. Hypotension. 6. Shock liver with elevated liver enzymes. BRIAN secondary to hypotension, with underlying cardio-renal component EF < 20% Possible non-oliguric ATN Elevated LFTs suggestive of shock liver Creatinine now improving and it is 1.8, On Bumex to 1 mg IV BID, Continue same dose for now. (2) Atrial fibrillation Code(s): I48.91 - Unspecified atrial fibrillation Status: Acute Qualifiers: Atrial fibrillation type: paroxysmal Qualified Code(s): I48.0 - Paroxysmal atrial fibrillation Plan: on amiodarone, follow with cardiology
[2018-08-01] MEDS: ALPRAZolam 0.25 MG Tablet PO PRN (22:39)
[2018-08-02 05:27] LABS: Albumin 3.2 g/dL (3.4-5.0); Anion Gap 8 meq/L (5-15); Aspartate Aminotransferase 421 U/L (15-37); Blood Urea Nitrogen 35 mg/dL (7-18); Calcium 9.5 mg/dL (8.5-10.1); Carbon Dioxide 37.2 meq/L (21.0-32.0); Chloride 94 meq/L (98-107); Glomerular Filtration Rate 45 mL/min (>89); Glucose,Random 94 mg/dL (74-106); Potassium 3.5 meq/L (3.5-5.1); Sodium 139 meq/L (136-145)
[2018-08-02 05:36] LABS: Alanine Aminotransferase 2090 U/L (12-78); Alkaline Phosphatase 113 U/L (45-117); Total Protein 6.6 g/dL (6.4-8.2)
[2018-08-02] MEDS: Famotidine 20 MG Tablet PO SCH ×2 (08:59→20:37)
--- NOTE | 2018-08-02 09:48 | P.PN ---
Subjective Interval history: Follow-up nonischemic cardiomyopathy/nonsustained ventricular tachycardia/A. fib /acute systolic CHF exacerbation July 31, 2018-patient seen and examined, endorses shortness of breath but denies any chest pain. August 01, 2018-patient seen and examined, denies any chest pain or shortness of breath, complains of minimal lower extremity swelling. Patient alert and oriented x3. LFTs trending down. August 02, 2018-patient seen and examined, remains stable in no acute event overnight. No chest pain, dizziness or shortness of breath. Physical Exam Vital signs: Vital Signs 08/01/18 10:00 08/01/18 11:00 08/01/18 12:00 Temperature 98.0 F Pulse Rate 92 H 97 H 96 H Respiratory Rate 18 Blood Pressure 118/80 Pulse Oximetry 94 L Pulse Oximetry [Resting on Room Air] Pulse Oximetry [Resting with Oxygen] 08/01/18 13:00 08/01/18 14:00 08/01/18 15:00 Temperature 97.5 F L Pulse Rate 83 92 H 82 Respiratory Rate 16 Blood Pressure 108/68 Pulse Oximetry 92 L Pulse Oximetry [Resting on Room Air] Pulse Oximetry [Resting with Oxygen] 08/01/18 16:00 08/01/18 16:26 08/01/18 17:00 Temperature Pulse Rate 90 88 Respiratory Rate Blood Pressure Pulse Oximetry Pulse Oximetry [Resting on Room Air] 87 L Pulse Oximetry [Resting with Oxygen] 98 08/01/18 18:00 08/01/18 19:00 08/01/18 20:00 Temperature 97.3 F L Pulse Rate 84 77 86 Respiratory Rate 24 Blood Pressure 99/75 L Pulse Oximetry 97 97 Pulse Oximetry [Resting on Room Air] Pulse Oximetry [Resting with Oxygen] 08/01/18 20:54 08/01/18 21:00 08/01/18 22:00 Temperature Pulse Rate 78 92 H 94 H Respiratory Rate 18 Blood Pressure Pulse Oximetry 95 Pulse Oximetry [Resting on Room Air] Pulse Oximetry [Resting with Oxygen] 08/01/18 23:00 08/02/18 00:00 08/02/18 01:00 Temperature 98.3 F Pulse Rate 108 H 87 96 H Respiratory Rate 22 Blood Pressure 116/75 Pulse Oximetry 96 Pulse Oximetry [Resting on Room Air] Pulse Oximetry [Resting with Oxygen] 08/02/18 02:00 08/02/18 03:00 08/02/18 04:00 Temperature 97.3 F L Pulse Rate 96 H 96 H 86 Respiratory Rate 20 Blood Pressure 88/62 L Pulse Oximetry 97 Pulse Oximetry [Resting on Room Air] Pulse Oximetry [Resting with Oxygen] 08/02/18 05:00 08/02/18 06:00 08/02/18 07:00 Temperature Pulse Rate 96 H 96 H 85 Respiratory Rate Blood Pressure Pulse Oximetry Pulse Oximetry [Resting on Room Air] Pulse Oximetry [Resting with Oxygen] Intake & Output 08/01/18 08/02/18 08/02/18 18:59 06:59 18:59 Intake Total 2300 / 2300 1200 / 1200 Output Total 2640 / 2640 2024 Balance -340 / -340 -825 / -825 Weight 132.5 kg Intake: IV 500 / 500 Sodium Bicarbonate 8.4% Inj 75 500 / 500 MEQ In NS Inj 925 ML @ 50 mls/ hr IV.CONT .Q20H [facility] Rx#: [id number] Oral 1800 / 1800 1200 / 1200 Output: Urine 2640 / 2640 2024 Other: Date of Last Bowel Movement 07/31/18 Narrative: GENERAL: NAD SKIN: Warm and dry. HEAD: Normocephalic. EYES: No scleral icterus. No injection or drainage. NECK: Supple, trachea midline. No JVD or lymphadenopathy. CARDIOVASCULAR: Regular rate and rhythm without murmurs, gallops, or rubs. RESPIRATORY: Breath sounds equal bilaterally. No accessory muscle use. GASTROINTESTINAL: Abdomen soft, non-tender, nondistended. MUSCULOSKELETAL: No cyanosis, or edema. BACK: Nontender without obvious deformity. No CVA tenderness. Results - Labs CBC & Chem 7: 07/31/18 06:31 08/02/18 03:36 Laboratory Results - last 24 hr 08/02/18 03:36 Sodium 139 Potassium 3.5 Chloride 94 L Carbon Dioxide 37.2 H Anion Gap 8 BUN 35 H Creatinine 1.64 H Estimated GFR 45 L Random Glucose 94 Calcium 9.5 Total Bilirubin 2.7 H AST 421 H ALT 2090 H Alkaline Phosphatase 113 Total Protein 6.6 Albumin 3.2 L - Procedures None Assessment and Plan - Assessment (1) Nonischemic cardiomyopathy Code(s): I42.8 - Other cardiomyopathies Status: Chronic (2) Nonsustained ventricular tachycardia Code(s): I47.2 - Ventricular tachycardia Status: Acute (3) Atrial fibrillation Code(s): I48.91 - Unspecified atrial fibrillation Status: Acute (4) Elevated troponin Code(s): R74.8 - Abnormal levels of other serum enzymes Status: Acute - Plan 47-year-old man with Nonischemic cardiomyopathy Currently on Toprol-XL 100 mg twice daily, aspirin CHENTE inhibitor currently on hold secondary to worsening renal function. Management per cardiology Nonsustained ventricular tachycardia IV amiodarone discontinued July 31, 2018 secondary to worsening LFTs May require LifeVest prior to discharge Currently on Toprol-XL 100 mg twice daily with holding parameter Management per cardiology Atrial fibrillation with RVR Currently on beta-jordan, Eliquis Management per cardiology Acute systolic congestive heart failure Currently on PO Bumex. Lasix has been discontinued Continue with beta-jordan Acute kidney injury Renal indices significantly improving Management per nephrology Transaminitis Secondary to amiodarone which was discontinued 07/31/18 LFTs trending down Monitor LFTs (3) Atrial fibrillation Qualifiers: Atrial fibrillation type: paroxysmal Qualified Code(s): I48.0 - Paroxysmal atrial fibrillation
[2018-08-02] MEDS: Metoprolol Tartrate 100 MG Tablet PO SCH ×2 (11:42→20:37)
--- NOTE | 2018-08-02 17:33 | P.PNNP ---
Subjective Interval history: Patient is alert, mild SOB, no chest pain. Physical Exam Vital signs: Vital Signs 08/01/18 18:00 08/01/18 19:00 08/01/18 20:00 Temperature 97.3 F L Pulse Rate 84 77 86 Respiratory Rate 24 Blood Pressure 99/75 L Pulse Oximetry 97 97 08/01/18 20:54 08/01/18 21:00 08/01/18 22:00 Temperature Pulse Rate 78 92 H 94 H Respiratory Rate 18 Blood Pressure Pulse Oximetry 95 08/01/18 23:00 08/02/18 00:00 08/02/18 01:00 Temperature 98.3 F Pulse Rate 108 H 87 96 H Respiratory Rate 22 Blood Pressure 116/75 Pulse Oximetry 96 08/02/18 02:00 08/02/18 03:00 08/02/18 04:00 Temperature 97.3 F L Pulse Rate 96 H 96 H 86 Respiratory Rate 20 Blood Pressure 88/62 L Pulse Oximetry 97 08/02/18 05:00 08/02/18 06:00 08/02/18 07:00 Temperature Pulse Rate 96 H 96 H 85 Respiratory Rate Blood Pressure Pulse Oximetry 08/02/18 08:00 08/02/18 09:00 08/02/18 10:00 Temperature 96.6 F L Pulse Rate 90 84 94 H Respiratory Rate 21 Blood Pressure 86/57 L Pulse Oximetry 94 L 94 L 08/02/18 10:19 08/02/18 10:30 08/02/18 11:00 Temperature Pulse Rate 101 H Respiratory Rate Blood Pressure Pulse Oximetry 94 L 94 L 08/02/18 11:40 08/02/18 11:41 08/02/18 12:00 Temperature 97.4 F L Pulse Rate 90 100 H Respiratory Rate 20 Blood Pressure 121/79 Pulse Oximetry 98 98 08/02/18 13:00 08/02/18 14:00 08/02/18 15:00 Temperature Pulse Rate 112 H 94 H 99 H Respiratory Rate Blood Pressure Pulse Oximetry 08/02/18 16:00 08/02/18 16:16 08/02/18 16:36 Temperature 97.9 F Pulse Rate 84 93 H Respiratory Rate 20 Blood Pressure 134/81 Pulse Oximetry 97 96 Intake & Output 08/01/18 08/02/18 08/02/18 18:59 06:59 18:59 Intake Total 2300 / 2300 1200 / 1200 980 / 980 Output Total 2640 / 2640 2024 Balance -340 / -340 -825 / -825 -970 / -970 Weight 132.5 kg Intake: IV 500 / 500 Sodium Bicarbonate 8.4% Inj 75 500 / 500 MEQ In NS Inj 925 ML @ 50 mls/ hr IV.CONT .Q20H [facility] Rx#: [id number] Oral 1800 / 1800 1200 / 1200 980 / 980 Output: Urine 2640 / 2640 2024 Other: Date of Last Bowel Movement 07/31/18 08/02/18 # Incontinent Bowel Movements 1 Narrative: GENERAL: NAD SKIN: Warm and dry. HEAD: Normocephalic. EYES: No scleral icterus. No injection or drainage. NECK: Supple, trachea midline. No JVD or lymphadenopathy. CARDIOVASCULAR: Regular rate and rhythm without murmurs, gallops, or rubs. RESPIRATORY: Breath sounds equal bilaterally. No accessory muscle use. GASTROINTESTINAL: Abdomen soft, non-tender, nondistended. MUSCULOSKELETAL: No cyanosis, or edema. BACK: Nontender without obvious deformity. No CVA tenderness. Assessment and Plan - Assessment (1) BRIAN (acute kidney injury) Code(s): N17.9 - Acute kidney failure, unspecified Status: Acute Plan: ASSESSMENT AND PLAN: 1. Acute kidney injury. 2. Atrial fibrillation with rapid ventricular rate. 3. Congestive heart failure. 4. Fluid overload status. 5. Hypotension. 6. Shock liver with elevated liver enzymes. BRIAN secondary to hypotension, with underlying cardio-renal component EF < 20% Possible non-oliguric ATN Elevated LFTs suggestive of shock liver Creatinine now improving and it is now 1.6. On Bumex to 1 mg IV BID, Continue same dose for now. K is normal, avoid Nephrotoxins. (2) Atrial fibrillation Code(s): I48.91 - Unspecified atrial fibrillation Status: Acute Qualifiers: Atrial fibrillation type: paroxysmal Qualified Code(s): I48.0 - Paroxysmal atrial fibrillation Plan: on amiodarone, follow with cardiology
[2018-08-02] MEDS: ALPRAZolam 0.25 MG Tablet PO PRN (23:26)
[2018-08-03 04:39] LABS: Baso # (Auto) 0.1 th/mm3 (0.0-0.2); Baso % (Auto) 0.7 % (0.0-2.0); Eos # (Auto) 0.3 th/mm3 (0.0-0.4); Eos % (Auto) 2.4 % (0.0-4.0); Hematocrit 47.5 % (39.0-51.0); Hemoglobin 16.2 gm/dL (13.0-17.0); Lymph # (Auto) 2.5 th/mm3 (1.0-4.8); Lymph % (Auto) 19.4 % (9.0-44.0); Mean Corpuscular HGB Conc 34.1 % (32.0-36.0); Mean Corpuscular Hemoglobin 31.6 pg (27.0-34.0); Mean Corpuscular Volume 92.7 fL (80.0-100.0); Mean Platelet Volume 9.5 fL (7.0-11.0); Mono # (Auto) 1.6 th/mm3 (0.0-0.9); Mono % (Auto) 12.6 % (0.0-8.0); Neut # (Auto) 8.4 th/mm3 (1.8-7.7); Neut % (Auto) 64.9 % (16.0-70.0); Platelet Count 120 th/mm3 (150-450); Red Blood Count 5.12 mil/mm3 (4.50-5.90); Red Cell Distribution Width 15.6 % (11.6-17.2)
[2018-08-03 05:05] LABS: Albumin 3.2 g/dL (3.4-5.0); Anion Gap 6 meq/L (5-15); Aspartate Aminotransferase 171 U/L (15-37); Blood Urea Nitrogen 30 mg/dL (7-18); Calcium 9.1 mg/dL (8.5-10.1); Carbon Dioxide 36.7 meq/L (21.0-32.0); Chloride 99 meq/L (98-107); Glucose,Random 118 mg/dL (74-106); Potassium 3.4 meq/L (3.5-5.1); Sodium 142 meq/L (136-145)
[2018-08-03 05:13] LABS: Alanine Aminotransferase 1363 U/L (12-78); Alkaline Phosphatase 108 U/L (45-117); Total Protein 6.6 g/dL (6.4-8.2)
[2018-08-03] MEDS: Metoprolol Tartrate 100 MG Tablet PO SCH ×2 (09:16→23:22)
[2018-08-03] MEDS: Famotidine 20 MG Tablet PO SCH ×2 (09:16→20:40)
--- NOTE | 2018-08-03 09:54 | P.PN ---
Subjective Interval history: Follow-up nonischemic cardiomyopathy/nonsustained ventricular tachycardia/A. fib /acute systolic CHF exacerbation July 31, 2018-patient seen and examined, endorses shortness of breath but denies any chest pain. August 01, 2018-patient seen and examined, denies any chest pain or shortness of breath, complains of minimal lower extremity swelling. Patient alert and oriented x3. LFTs trending down. August 02, 2018-patient seen and examined, remains stable in no acute event overnight. No chest pain, dizziness or shortness of breath. August 03, 2018-patient seen and examined, no complaints, currently in sinus rhythm. Physical Exam Vital signs: Vital Signs 08/02/18 10:00 08/02/18 10:19 08/02/18 10:30 Temperature Pulse Rate 94 H Respiratory Rate Blood Pressure Pulse Oximetry 94 L 94 L 08/02/18 11:00 08/02/18 11:40 08/02/18 11:41 Temperature 97.4 F L Pulse Rate 101 H 90 Respiratory Rate 20 Blood Pressure 121/79 Pulse Oximetry 98 98 08/02/18 12:00 08/02/18 13:00 08/02/18 14:00 Temperature Pulse Rate 100 H 112 H 94 H Respiratory Rate Blood Pressure Pulse Oximetry 08/02/18 15:00 08/02/18 16:00 08/02/18 16:16 Temperature Pulse Rate 99 H 84 Respiratory Rate Blood Pressure Pulse Oximetry 97 08/02/18 16:36 08/02/18 17:00 08/02/18 17:41 Temperature 97.9 F Pulse Rate 93 H 92 H Respiratory Rate 20 Blood Pressure 134/81 Pulse Oximetry 96 96 08/02/18 18:00 08/02/18 19:00 08/02/18 20:00 Temperature 97.5 F L Pulse Rate 88 78 105 H Respiratory Rate 18 Blood Pressure 109/73 Pulse Oximetry 97 97 08/02/18 21:00 08/02/18 22:00 08/02/18 23:00 Temperature 97.8 F Pulse Rate 90 96 H 74 Respiratory Rate 18 Blood Pressure 108/75 Pulse Oximetry 94 L 08/03/18 00:00 08/03/18 01:00 08/03/18 02:00 Temperature Pulse Rate 90 90 110 H Respiratory Rate Blood Pressure Pulse Oximetry 08/03/18 03:00 08/03/18 04:00 08/03/18 05:00 Temperature 97.8 F Pulse Rate 78 74 84 Respiratory Rate 18 Blood Pressure 102/71 Pulse Oximetry 94 L 08/03/18 06:00 08/03/18 07:00 08/03/18 09:06 Temperature 97.4 F L Pulse Rate 90 100 H 79 Respiratory Rate 20 Blood Pressure 116/90 Pulse Oximetry 95 Intake & Output 08/02/18 08/03/18 08/03/18 18:59 06:59 18:59 Intake Total 980 / 980 720 / 720 Output Total 1949 875 / 875 Balance -970 / -970 -155 / -155 Weight 129.6 kg Intake: Oral 980 / 980 720 / 720 Output: Urine 1949 875 / 875 Other: Date of Last Bowel Movement 08/02/18 08/02/18 # Incontinent Bowel Movements 1 Narrative: GENERAL: NAD and lying in bed SKIN: Warm and dry. HEAD: Normocephalic. EYES: No scleral icterus. No injection or drainage. NECK: Supple, trachea midline. No JVD or lymphadenopathy. CARDIOVASCULAR: Irregular regular rate and rhythm without murmurs, gallops, or rubs. RESPIRATORY: Breath sounds equal bilaterally. No accessory muscle use. GASTROINTESTINAL: Abdomen soft, non-tender, nondistended. MUSCULOSKELETAL: No cyanosis, or edema. BACK: Nontender without obvious deformity. No CVA tenderness. Results - Labs CBC & Chem 7: 08/03/18 03:56 08/03/18 03:56 Laboratory Results - last 24 hr 08/03/18 08/03/18 03:56 03:56 WBC 13.0 H RBC 5.12 Hgb 16.2 Hct 47.5 MCV 92.7 MCH 31.6 MCHC 34.1 RDW 15.6 Plt Count 120 L D MPV 9.5 Prelim Diff (Auto) Slide review pending Neut % (Auto) 64.9 Lymph % (Auto) 19.4 [place] % (Auto) 12.6 H Eos % (Auto) 2.4 Baso % (Auto) 0.7 Neut # (Auto) 8.4 H Lymph # (Auto) 2.5 [place] # (Auto) 1.6 H Eos # (Auto) 0.3 Baso # (Auto) 0.1 WBC Differential . Diff Scan Auto diff confirmed Differential Comment . Platelet Estimate Low L Platelet Morphology Enlarged H Sodium 142 Potassium 3.4 L Chloride 99 Carbon Dioxide 36.7 H Anion Gap 6 BUN 30 H Creatinine 1.46 H Random Glucose 118 H Calcium 9.1 Total Bilirubin 1.8 H AST 171 H ALT 1363 H Alkaline Phosphatase 108 Total Protein 6.6 Albumin 3.2 L - Procedures None Assessment and Plan - Assessment (1) Nonischemic cardiomyopathy Code(s): I42.8 - Other cardiomyopathies Status: Chronic (2) Nonsustained ventricular tachycardia Code(s): I47.2 - Ventricular tachycardia Status: Acute (3) Atrial fibrillation Code(s): I48.91 - Unspecified atrial fibrillation Status: Acute (4) Elevated troponin Code(s): R74.8 - Abnormal levels of other serum enzymes Status: Acute - Plan 47-year-old man with Nonischemic cardiomyopathy Currently on Toprol-XL 100 mg twice daily, aspirin CHENTE inhibitor currently on hold secondary to BRIAN Management per cardiology Nonsustained ventricular tachycardia IV amiodarone discontinued July 31, 2018 secondary to worsening LFTs He will require LifeVest prior to discharge Currently on Toprol-XL 100 mg twice daily with holding parameter Management per cardiology Atrial fibrillation with RVR Currently on beta-jordan, Eliquis Management per cardiology Acute systolic congestive heart failure Currently on PO Bumex. Lasix has been discontinued Continue with beta-jordan Acute kidney injury Renal indices significantly improving Management per nephrology Hypokalemia Give potassium 60 mEq x1 now and monitor electrolyte Transaminitis Secondary to amiodarone which was discontinued 07/31/18 LFTs significantly trending down Monitor LFTs (3) Atrial fibrillation Qualifiers: Atrial fibrillation type: paroxysmal Qualified Code(s): I48.0 - Paroxysmal atrial fibrillation
--- NOTE | 2018-08-03 10:06 | P.PNCA ---
Subjective Interval history: Denies dyspnea, CP, dizziness, palpitations. Medications and Allergies Active Medications: Active Medications Acetaminophen (Tylenol) 650 mg PO Q4H PRN PRN Reason: Temp > 100.4 Al Hydroxide/Mg Hydroxide (Milk Of Magnesia Liq) 30 ml PO Q12H PRN PRN Reason: Mild Constipation Albuterol (Duoneb Neb (Prn)) 1 ampul NEB Q4HR NEB PRN PRN Reason: WHEEZING Last Admin: 08/01/18 20:54 Dose: 1 ampul Alprazolam (Xanax) 0.25 mg PO Q4H PRN PRN Reason: ANXIETY Last Admin: 08/02/18 23:26 Dose: 0.25 mg Apixaban (Eliquis) 2.5 mg PO BID [facility] Last Admin: 08/03/18 09:16 Dose: 2.5 mg Aspirin (Aspirin Chew) 81 mg PO DAILY [facility] Last Admin: 08/03/18 09:16 Dose: 81 mg Bisacodyl (Dulcolax Supp) 10 mg RECTAL DAILY PRN PRN Reason: SEVERE CONSITIPATION Bumetanide (Bumex) 1 mg PO BID@0900,1800 [facility] Last Admin: 08/03/18 09:16 Dose: 1 mg Calcium Carbonate (Tums Chew) 500 mg CHEW Q4H PRN PRN Reason: HEARTBURN Last Admin: 07/30/18 22:25 Dose: 500 mg Enalapril Maleate (Vasotec) 5 mg PO DAILY [facility] Famotidine (Pepcid) 10 mg PO BID [facility] Last Admin: 08/03/18 09:16 Dose: 10 mg Lactulose (Lactulose Liq) 30 ml PO DAILY PRN PRN Reason: SEVERE CONSITIPATION Metoprolol Tartrate (Lopressor) 100 mg PO BID [facility] Last Admin: 08/03/18 09:16 Dose: 100 mg Miscellaneous (Pill Splitter) 1 each OTHER [facility] Ondansetron HCl (Zofran Inj) 4 mg IV.PUSH Q6H PRN PRN Reason: NAUSEA OR VOMITING Last Admin: 07/29/18 09:16 Dose: 4 mg Sennosides (Senokot) 17.2 mg PO Q12H PRN PRN Reason: Moderate Constipation Sodium Chloride (Ns Flush) 2 ml IV.FLUSH BID [facility] Last Admin: 08/03/18 09:16 Dose: 2 ml Sodium Chloride (Ns Flush) 2 ml IV.FLUSH PRN PRN PRN Reason: FLUSH AFTER USING IV ACCESS Allergies Allergy/AdvReac Type Severity Reaction Status Date / Time No Known Allergies Allergy Verified 07/09/18 01:49 Home Medications Medication Instructions Recorded Confirmed Type Lasix 50 mg PO DAILY 07/28/18 07/28/18 History Physical Exam Vital signs: Vital Signs 08/02/18 10:19 08/02/18 10:30 08/02/18 11:00 Temperature Pulse Rate 101 H Respiratory Rate Blood Pressure Pulse Oximetry 94 L 94 L 08/02/18 11:40 08/02/18 11:41 08/02/18 12:00 Temperature 97.4 F L Pulse Rate 90 100 H Respiratory Rate 20 Blood Pressure 121/79 Pulse Oximetry 98 98 08/02/18 13:00 08/02/18 14:00 08/02/18 15:00 Temperature Pulse Rate 112 H 94 H 99 H Respiratory Rate Blood Pressure Pulse Oximetry 08/02/18 16:00 08/02/18 16:16 08/02/18 16:36 Temperature 97.9 F Pulse Rate 84 93 H Respiratory Rate 20 Blood Pressure 134/81 Pulse Oximetry 97 96 08/02/18 17:00 08/02/18 17:41 08/02/18 18:00 Temperature Pulse Rate 92 H 88 Respiratory Rate Blood Pressure Pulse Oximetry 96 08/02/18 19:00 08/02/18 20:00 08/02/18 21:00 Temperature 97.5 F L Pulse Rate 78 105 H 90 Respiratory Rate 18 Blood Pressure 109/73 Pulse Oximetry 97 97 08/02/18 22:00 08/02/18 23:00 08/03/18 00:00 Temperature 97.8 F Pulse Rate 96 H 74 90 Respiratory Rate 18 Blood Pressure 108/75 Pulse Oximetry 94 L 08/03/18 01:00 08/03/18 02:00 08/03/18 03:00 Temperature 97.8 F Pulse Rate 90 110 H 78 Respiratory Rate 18 Blood Pressure 102/71 Pulse Oximetry 94 L 08/03/18 04:00 08/03/18 05:00 08/03/18 06:00 Temperature Pulse Rate 74 84 90 Respiratory Rate Blood Pressure Pulse Oximetry 08/03/18 07:00 08/03/18 09:06 Temperature 97.4 F L Pulse Rate 100 H 79 Respiratory Rate 20 Blood Pressure 116/90 Pulse Oximetry 95 Intake & Output 08/02/18 08/03/18 08/03/18 18:59 06:59 18:59 Intake Total 980 / 980 720 / 720 Output Total 1949 875 / 875 Balance -970 / -970 -155 / -155 Weight 129.6 kg Intake: Oral 980 / 980 720 / 720 Output: Urine 1949 875 / 875 Other: Date of Last Bowel Movement 08/02/18 08/02/18 # Incontinent Bowel Movements 1 - Constitutional no acute distress - Routine Neck Exam Absent: JVD - Routine Respiratory Exam Present: CTA bilaterally - Routine Cardiovascular Exam Present: S1, S2, irregularly irregular. Absent: murmur, gallop - Routine Abdominal Exam Present: soft, normoactive bowel sounds. Absent: tenderness, organomegaly - Routine Extremities Exam Absent: cyanosis, clubbing, edema Results 08/03/18 03:56 08/03/18 03:56 Cardiac Enzymes 08/02/18 08/03/18 Range/Units 03:36 03:56 AST 421 H 171 H (15-37) U/L CBC 08/03/18 Range/Units 03:56 WBC 13.0 H (4.0-11.0) th/mm3 RBC 5.12 (4.50-5.90) mil/mm3 Hgb 16.2 (13.0-17.0) gm/dL Hct 47.5 (39.0-51.0) % Plt Count 120 L D (150-450) th/mm3 Neut # (Auto) 8.4 H (1.8-7.7) th/mm3 Lymph # (Auto) 2.5 (1.0-4.8) th/mm3 [place] # (Auto) 1.6 H (0.0-0.9) th/mm3 Eos # (Auto) 0.3 (0.0-0.4) th/mm3 Baso # (Auto) 0.1 (0.0-0.2) th/mm3 Comprehensive Metabolic Panel 08/02/18 08/03/18 Range/Units 03:36 03:56 Sodium 139 142 (136-145) meq/L Potassium 3.5 3.4 L (3.5-5.1) meq/L Chloride 94 L 99 (98-107) meq/L Carbon Dioxide 37.2 H 36.7 H (21.0-32.0) meq/L BUN 35 H 30 H (7-18) mg/dL Creatinine 1.64 H 1.46 H (0.60-1.30) mg/dL Calcium 9.5 9.1 (8.5-10.1) mg/dL AST 421 H 171 H (15-37) U/L ALT 2090 H 1363 H (12-78) U/L Alkaline Phosphatase 113 108 (45-117) U/L Total Protein 6.6 6.6 (6.4-8.2) g/dL Albumin 3.2 L 3.2 L (3.4-5.0) g/dL Intake and Output 08/02/18 08/03/18 08/03/18 22:59 06:59 14:59 Intake Total 980 / 980 720 / 720 Output Total 1949 875 / 875 Balance -970 / -970 -155 / -155 Intake: Oral 980 / 980 720 / 720 Output: Urine 1949 875 / 875 Other: Date of Last Bowel Movement 08/02/18 08/02/18 # Incontinent Bowel Movements 1 Weight 129.6 kg Assessment and Plan - Assessment (1) Nonischemic cardiomyopathy Code(s): I42.8 - Other cardiomyopathies Status: Chronic Plan: EF < 20%. Clinically stable. Renal and hepatic indices continue to improve. RECOMMEND no CHENTE-I or ARB for now with his renal insufficiency, continue metoprolol. In light of the patient's severely reduced EF and nonsustained VT, recommend a Life Vest external defibrillator. OK to discharge from my standpoint when he has the Life Vest. (2) Nonsustained ventricular tachycardia Code(s): I47.2 - Ventricular tachycardia Status: Acute Plan: No further episodes. Amiodarone stopped due to elevation in LFT's. In light of the patient's severely reduced EF and nonsustained VT, recommend a Life Vest external defibrillator. (3) Atrial fibrillation Code(s): I48.91 - Unspecified atrial fibrillation Status: Acute Plan: Remains in atrial fib. HR's mostly controlled. Patient asymptomatic. Thromboembolic risk high. RECOMMEND Continue metoprolol. Continue apixaban, increase dose back to 5 mg bid. (4) Elevated troponin Code(s): R74.8 - Abnormal levels of other serum enzymes Status: Acute Plan: Minimal troponin elevations. Doubt due to ACS. No definite angina symptoms. Patient reports unremarkable cath in [place] 2 years ago. - Plan Code Status: full Discussed Condition With: patient (3) Atrial fibrillation Qualifiers: Atrial fibrillation type: paroxysmal Qualified Code(s): I48.0 - Paroxysmal atrial fibrillation
--- NOTE | 2018-08-03 12:19 | P.PNNP ---
Subjective Interval history: Patient is alert, no SOB, no chest pain. Physical Exam Vital signs: Vital Signs 08/02/18 13:00 08/02/18 14:00 08/02/18 15:00 Temperature Pulse Rate 112 H 94 H 99 H Respiratory Rate Blood Pressure Pulse Oximetry 08/02/18 16:00 08/02/18 16:16 08/02/18 16:36 Temperature 97.9 F Pulse Rate 84 93 H Respiratory Rate 20 Blood Pressure 134/81 Pulse Oximetry 97 96 08/02/18 17:00 08/02/18 17:41 08/02/18 18:00 Temperature Pulse Rate 92 H 88 Respiratory Rate Blood Pressure Pulse Oximetry 96 08/02/18 19:00 08/02/18 20:00 08/02/18 21:00 Temperature 97.5 F L Pulse Rate 78 105 H 90 Respiratory Rate 18 Blood Pressure 109/73 Pulse Oximetry 97 97 08/02/18 22:00 08/02/18 23:00 08/03/18 00:00 Temperature 97.8 F Pulse Rate 96 H 74 90 Respiratory Rate 18 Blood Pressure 108/75 Pulse Oximetry 94 L 08/03/18 01:00 08/03/18 02:00 08/03/18 03:00 Temperature 97.8 F Pulse Rate 90 110 H 78 Respiratory Rate 18 Blood Pressure 102/71 Pulse Oximetry 94 L 08/03/18 04:00 08/03/18 05:00 08/03/18 06:00 Temperature Pulse Rate 74 84 90 Respiratory Rate Blood Pressure Pulse Oximetry 08/03/18 07:00 08/03/18 09:06 Temperature 97.4 F L Pulse Rate 100 H 79 Respiratory Rate 20 Blood Pressure 116/90 Pulse Oximetry 95 Intake & Output 08/02/18 08/03/18 08/03/18 18:59 06:59 18:59 Intake Total 980 / 980 720 / 720 Output Total 1949 875 / 875 Balance -970 / -970 -155 / -155 Weight 129.6 kg Intake: Oral 980 / 980 720 / 720 Output: Urine 1949 875 / 875 Other: Date of Last Bowel Movement 08/02/18 08/02/18 # Incontinent Bowel Movements 1 Narrative: GENERAL: NAD and lying in bed SKIN: Warm and dry. HEAD: Normocephalic. EYES: No scleral icterus. No injection or drainage. NECK: Supple, trachea midline. No JVD or lymphadenopathy. CARDIOVASCULAR: Irregular regular rate and rhythm without murmurs, gallops, or rubs. RESPIRATORY: Breath sounds equal bilaterally. No accessory muscle use. GASTROINTESTINAL: Abdomen soft, non-tender, nondistended. MUSCULOSKELETAL: No cyanosis, or edema. BACK: Nontender without obvious deformity. No CVA tenderness. Assessment and Plan - Assessment (1) BRIAN (acute kidney injury) Code(s): N17.9 - Acute kidney failure, unspecified Status: Acute Plan: ASSESSMENT AND PLAN: 1. Acute kidney injury. 2. Atrial fibrillation with rapid ventricular rate. 3. Congestive heart failure. 4. Fluid overload status. 5. Hypotension. 6. Shock liver with elevated liver enzymes. BRIAN secondary to hypotension, with underlying cardio-renal component EF < 20% Possible non-oliguric ATN Elevated LFTs suggestive of shock liver Creatinine now improving and it is 1.4. On Bumex to 1 mg IV BID, Continue same dose for now. K is normal, avoid Nephrotoxins. Can be discharged from Nephrology. (2) Atrial fibrillation Code(s): I48.91 - Unspecified atrial fibrillation Status: Acute Qualifiers: Atrial fibrillation type: paroxysmal Qualified Code(s): I48.0 - Paroxysmal atrial fibrillation Plan: on amiodarone, follow with cardiology
[2018-08-03] MEDS: ALPRAZolam 0.25 MG Tablet PO PRN (23:22)
[2018-08-04 05:37] LABS: Alanine Aminotransferase 951 U/L (12-78); Alkaline Phosphatase 107 U/L (45-117); Total Protein 6.6 g/dL (6.4-8.2)
[2018-08-04 05:43] LABS: Anion Gap 6 meq/L (5-15); Aspartate Aminotransferase 98 U/L (15-37); Blood Urea Nitrogen 23 mg/dL (7-18); Calcium 8.7 mg/dL (8.5-10.1); Carbon Dioxide 32.8 meq/L (21.0-32.0); Chloride 100 meq/L (98-107); Glomerular Filtration Rate 61 mL/min (>89); Glucose,Random 111 mg/dL (74-106); Potassium 3.7 meq/L (3.5-5.1); Sodium 139 meq/L (136-145)
[2018-08-04] MEDS: Metoprolol Tartrate 100 MG Tablet PO SCH ×2 (08:00→20:18)
[2018-08-04] MEDS: Famotidine 20 MG Tablet PO SCH ×2 (08:00→20:19)
[2018-08-04] MEDS: ALPRAZolam 0.25 MG Tablet PO PRN ×3 (08:58→23:36)
--- NOTE | 2018-08-04 09:47 | P.PNIM ---
Subjective Interval history: The pt was resting comfortably in bed. He had no acute complaints other than not being able to sleep, which has been an issue for the past few months. He wanted to know if he was leaving soon. No chest pain or shortness of breath. Physical Exam Vital signs: Vital Signs 08/03/18 10:00 08/03/18 11:00 08/03/18 12:00 Temperature Pulse Rate 88 80 88 Respiratory Rate Blood Pressure Pulse Oximetry 08/03/18 12:20 08/03/18 13:00 08/03/18 14:00 Temperature 97.7 F Pulse Rate 85 88 96 H Respiratory Rate 21 Blood Pressure 109/70 Pulse Oximetry 95 08/03/18 15:00 08/03/18 16:00 08/03/18 16:44 Temperature 97.8 F Pulse Rate 85 100 H 96 H Respiratory Rate 21 Blood Pressure 94/67 L Pulse Oximetry 97 08/03/18 17:00 08/03/18 18:00 08/03/18 19:00 Temperature 97.8 F Pulse Rate 94 H 92 H 92 H Respiratory Rate 20 Blood Pressure 92/64 L Pulse Oximetry 94 L 08/03/18 20:00 08/03/18 21:00 08/03/18 22:00 Temperature Pulse Rate 100 H 96 H 104 H Respiratory Rate Blood Pressure Pulse Oximetry 94 L 08/03/18 23:00 08/04/18 00:00 08/04/18 01:00 Temperature 97.4 F L Pulse Rate 104 H 102 H 100 H Respiratory Rate 20 Blood Pressure 98/70 L Pulse Oximetry 97 08/04/18 02:00 08/04/18 03:00 08/04/18 04:00 Temperature 97.8 F Pulse Rate 103 H 92 H 97 H Respiratory Rate 20 Blood Pressure 109/77 Pulse Oximetry 97 08/04/18 05:00 08/04/18 06:00 08/04/18 07:00 Temperature 98.4 F Pulse Rate 100 H 106 H 93 H Respiratory Rate 20 Blood Pressure 100/69 Pulse Oximetry 94 L 08/04/18 08:00 08/04/18 09:00 Temperature Pulse Rate 93 H 95 H Respiratory Rate Blood Pressure Pulse Oximetry 94 L Intake & Output 08/03/18 08/04/18 08/04/18 18:59 06:59 18:59 Intake Total 1300 / 1300 1200 / 1200 Output Total 2000 / 2000 1450 / 1450 Balance -700 / -700 -250 / -250 Weight 128 kg Intake: Oral 1300 / 1300 1200 / 1200 Output: Urine 1999 1450 / 1450 Other: Date of Last Bowel Movement 08/03/18 08/02/18 08/03/18 # Incontinent Bowel Movements 2 Narrative: GENERAL: NAD and lying in bed. SKIN: Warm and dry. HEAD: Normocephalic. EYES: No scleral icterus. No injection or drainage. NECK: Supple, trachea midline. No JVD or lymphadenopathy. CARDIOVASCULAR: Irregular regular rate and rhythm without murmurs, gallops, or rubs. RESPIRATORY: Breath sounds equal bilaterally. No accessory muscle use. GASTROINTESTINAL: Abdomen soft, non-tender, nondistended. MUSCULOSKELETAL: No cyanosis, or edema. BACK: Nontender without obvious deformity. No CVA tenderness. Results - Labs CBC & Chem 7: 08/03/18 03:56 08/04/18 04:37 Laboratory Results - last 24 hr 08/04/18 04:37 Sodium 139 Potassium 3.7 Chloride 100 Carbon Dioxide 32.8 H Anion Gap 6 BUN 23 H Creatinine 1.26 Estimated GFR 61 L Random Glucose 111 H Calcium 8.7 Total Bilirubin 1.6 H AST 98 H ALT 951 H Alkaline Phosphatase 107 Total Protein 6.6 Albumin 3.0 L - Procedures None Assessment and Plan - Assessment (1) Nonischemic cardiomyopathy Code(s): I42.8 - Other cardiomyopathies Status: Chronic (2) Nonsustained ventricular tachycardia Code(s): I47.2 - Ventricular tachycardia Status: Acute (3) Atrial fibrillation Code(s): I48.91 - Unspecified atrial fibrillation Status: Acute (4) Elevated troponin Code(s): R74.8 - Abnormal levels of other serum enzymes Status: Acute - Plan Nonischemic cardiomyopathy -Currently on Toprol-XL 100 mg twice daily, aspirin -CHENTE inhibitor currently on hold secondary to BRIAN -Management per cardiology Nonsustained ventricular tachycardia IV amiodarone discontinued July 31, 2018 secondary to worsening LFTs. -He will require LifeVest prior to discharge -Currently on Toprol-XL 100 mg twice daily with holding parameter -Management per cardiology -telemetry. Atrial fibrillation with RVR Rate controlled. -Currently on beta-jordan, Eliquis -Management per cardiology Acute systolic congestive heart failure -Currently on PO Bumex. Lasix has been discontinued -Continue with beta-jordan Acute kidney injury Renal indices significantly improving. -Management per nephrology. Transaminitis Secondary to amiodarone which was discontinued 07/31/18 -LFTs significantly trending down. Monitor LFTs. Leukocytosis Improving. Afebrile. Asymptomatic. -trend. PPx: Eliquis (3) Atrial fibrillation Qualifiers: Atrial fibrillation type: paroxysmal Qualified Code(s): I48.0 - Paroxysmal atrial fibrillation
--- NOTE | 2018-08-04 21:26 | P.PNNP ---
Subjective Interval history: Patient seen in the late afternoon, no SOB or chest pain. Physical Exam Vital signs: Vital Signs 08/03/18 22:00 08/03/18 23:00 08/04/18 00:00 Temperature 97.4 F L Pulse Rate 104 H 104 H 102 H Respiratory Rate 20 Blood Pressure 98/70 L Pulse Oximetry 97 08/04/18 01:00 08/04/18 02:00 08/04/18 03:00 Temperature 97.8 F Pulse Rate 100 H 103 H 92 H Respiratory Rate 20 Blood Pressure 109/77 Pulse Oximetry 97 08/04/18 04:00 08/04/18 05:00 08/04/18 06:00 Temperature Pulse Rate 97 H 100 H 106 H Respiratory Rate Blood Pressure Pulse Oximetry 08/04/18 07:00 08/04/18 08:00 08/04/18 09:00 Temperature 98.4 F Pulse Rate 93 H 93 H 95 H Respiratory Rate 20 Blood Pressure 100/69 Pulse Oximetry 94 L 94 L 08/04/18 10:00 08/04/18 11:00 08/04/18 12:00 Temperature 97.5 F L Pulse Rate 97 H 76 99 H Respiratory Rate 20 Blood Pressure 109/76 Pulse Oximetry 98 08/04/18 13:00 08/04/18 14:00 08/04/18 14:39 Temperature 97.4 F L Pulse Rate 81 98 H 90 Respiratory Rate 20 Blood Pressure 104/67 Pulse Oximetry 95 08/04/18 15:00 08/04/18 16:00 08/04/18 17:27 Temperature Pulse Rate 83 101 H 94 H Respiratory Rate Blood Pressure Pulse Oximetry Intake & Output 08/04/18 08/04/18 08/05/18 06:59 18:59 06:59 Intake Total 1200 / 1200 960 / 960 Output Total 1450 / 1450 900 / 900 Balance -250 / -250 60 / 60 Weight 128 kg Intake: Oral 1200 / 1200 960 / 960 Output: Urine 1450 / 1450 900 / 900 Other: Date of Last Bowel Movement 08/02/18 08/03/18 # Bowel Movements 0 Narrative: GENERAL: NAD and lying in bed. SKIN: Warm and dry. HEAD: Normocephalic. EYES: No scleral icterus. No injection or drainage. NECK: Supple, trachea midline. No JVD or lymphadenopathy. CARDIOVASCULAR: Irregular regular rate and rhythm without murmurs, gallops, or rubs. RESPIRATORY: Breath sounds equal bilaterally. No accessory muscle use. GASTROINTESTINAL: Abdomen soft, non-tender, nondistended. MUSCULOSKELETAL: No cyanosis, or edema. BACK: Nontender without obvious deformity. No CVA tenderness. Assessment and Plan - Assessment (1) BRIAN (acute kidney injury) Code(s): N17.9 - Acute kidney failure, unspecified Status: Acute Plan: ASSESSMENT AND PLAN: 1. Acute kidney injury. 2. Atrial fibrillation with rapid ventricular rate. 3. Congestive heart failure. 4. Fluid overload status. 5. Hypotension. 6. Shock liver with elevated liver enzymes. BRIAN secondary to hypotension, with underlying cardio-renal component EF < 20% Possible non-oliguric ATN Elevated LFTs suggestive of shock liver Creatinine now improving and it is 1.29 On Bumex to 1 mg IV BID, Continue same dose for now. K is normal, avoid Nephrotoxins. Follow the urine out put and BMP. (2) Atrial fibrillation Code(s): I48.91 - Unspecified atrial fibrillation Status: Acute Qualifiers: Atrial fibrillation type: paroxysmal Qualified Code(s): I48.0 - Paroxysmal atrial fibrillation Plan: on amiodarone, follow with cardiology
[2018-08-05 03:56] LABS: Baso # (Auto) 0.1 th/mm3 (0.0-0.2); Baso % (Auto) 0.6 % (0.0-2.0); Eos # (Auto) 0.3 th/mm3 (0.0-0.4); Eos % (Auto) 2.2 % (0.0-4.0); Hematocrit 49.3 % (39.0-51.0); Hemoglobin 16.8 gm/dL (13.0-17.0); Lymph # (Auto) 2.4 th/mm3 (1.0-4.8); Lymph % (Auto) 20.5 % (9.0-44.0); Mean Corpuscular HGB Conc 34.1 % (32.0-36.0); Mean Corpuscular Hemoglobin 31.4 pg (27.0-34.0); Mean Corpuscular Volume 92.1 fL (80.0-100.0); Mean Platelet Volume 9.3 fL (7.0-11.0); Mono # (Auto) 1.5 th/mm3 (0.0-0.9); Mono % (Auto) 13.3 % (0.0-8.0); Neut # (Auto) 7.4 th/mm3 (1.8-7.7); Neut % (Auto) 63.4 % (16.0-70.0); Platelet Count 125 th/mm3 (150-450); Red Blood Count 5.35 mil/mm3 (4.50-5.90); Red Cell Distribution Width 15.2 % (11.6-17.2); White Blood Count 11.7 th/mm3 (4.0-11.0)
[2018-08-05 04:20] LABS: Alanine Aminotransferase 712 U/L (12-78); Albumin 3.1 g/dL (3.4-5.0); Anion Gap 6 meq/L (5-15); Aspartate Aminotransferase 71 U/L (15-37); Blood Urea Nitrogen 24 mg/dL (7-18); Calcium 8.8 mg/dL (8.5-10.1); Chloride 99 meq/L (98-107); Glomerular Filtration Rate 62 mL/min (>89); Glucose,Random 106 mg/dL (74-106); Magnesium 2.2 mg/dL (1.5-2.5); Potassium 3.8 meq/L (3.5-5.1); Sodium 139 meq/L (136-145)
[2018-08-05 04:22] LABS: Alkaline Phosphatase 108 U/L (45-117)
[2018-08-05] MEDS: Famotidine 20 MG Tablet PO SCH (09:07)
[2018-08-05] MEDS: Metoprolol Tartrate 100 MG Tablet PO SCH (09:07)
[2018-08-05] MEDS: ALPRAZolam 0.25 MG Tablet PO PRN (09:09)
--- NOTE | 2018-08-05 09:58 | P.PNIM ---
Subjective Interval history: The pt was resting comfortably in bed. He had no acute complaints. He has been tolerating a diet and sleeping well. Physical Exam Vital signs: Vital Signs 08/04/18 10:00 08/04/18 11:00 08/04/18 12:00 Temperature 97.5 F L Pulse Rate 97 H 76 99 H Respiratory Rate 20 Blood Pressure 109/76 Pulse Oximetry 98 08/04/18 13:00 08/04/18 14:00 08/04/18 14:39 Temperature 97.4 F L Pulse Rate 81 98 H 90 Respiratory Rate 20 Blood Pressure 104/67 Pulse Oximetry 95 08/04/18 15:00 08/04/18 16:00 08/04/18 17:27 Temperature Pulse Rate 83 101 H 94 H Respiratory Rate Blood Pressure Pulse Oximetry 08/04/18 19:00 08/04/18 20:00 08/04/18 21:00 Temperature 97.9 F Pulse Rate 95 H 100 H 98 H Respiratory Rate 20 Blood Pressure 114/83 Pulse Oximetry 95 98 08/04/18 22:00 08/04/18 23:00 08/04/18 23:13 Temperature 97.7 F Pulse Rate 100 H 85 100 H Respiratory Rate 20 Blood Pressure 101/63 Pulse Oximetry 95 08/05/18 01:00 08/05/18 02:00 08/05/18 03:00 Temperature 97.7 F Pulse Rate 93 H 94 H 89 Respiratory Rate 18 Blood Pressure 97/65 L Pulse Oximetry 95 08/05/18 04:00 08/05/18 05:00 08/05/18 06:00 Temperature Pulse Rate 89 81 95 H Respiratory Rate Blood Pressure Pulse Oximetry 08/05/18 07:00 Temperature 97.5 F L Pulse Rate 72 Respiratory Rate Blood Pressure 103/61 Pulse Oximetry 94 L Intake & Output 08/04/18 08/05/18 08/05/18 18:59 06:59 18:59 Intake Total 960 / 960 720 / 720 Output Total 900 / 900 1825 / 1825 Balance 60 / 60 -1105 / -1105 Weight 129.5 kg Intake: Oral 960 / 960 720 / 720 Output: Urine 900 / 900 1825 / 1825 Other: Date of Last Bowel Movement 08/03/18 08/03/18 08/04/18 # Bowel Movements 0 Narrative: GENERAL: NAD and lying in bed. SKIN: Warm and dry. HEAD: Normocephalic. EYES: No scleral icterus. No injection or drainage. NECK: Supple, trachea midline. No JVD or lymphadenopathy. CARDIOVASCULAR: Irregular regular rate and rhythm without murmurs, gallops, or rubs. RESPIRATORY: Breath sounds equal bilaterally. No accessory muscle use. GASTROINTESTINAL: Abdomen soft, non-tender, nondistended. MUSCULOSKELETAL: No cyanosis, or edema. BACK: Nontender without obvious deformity. No CVA tenderness. Results - Labs CBC & Chem 7: 08/05/18 03:35 08/05/18 03:35 Laboratory Results - last 24 hr 08/05/18 08/05/18 03:35 03:35 WBC 11.7 H RBC 5.35 Hgb 16.8 Hct 49.3 MCV 92.1 MCH 31.4 MCHC 34.1 RDW 15.2 Plt Count 125 L MPV 9.3 Neut % (Auto) 63.4 Lymph % (Auto) 20.5 [place] % (Auto) 13.3 H Eos % (Auto) 2.2 Baso % (Auto) 0.6 Neut # (Auto) 7.4 Lymph # (Auto) 2.4 [place] # (Auto) 1.5 H Eos # (Auto) 0.3 Baso # (Auto) 0.1 WBC Differential . Differential Comment Auto diff final Sodium 139 Potassium 3.8 Chloride 99 Carbon Dioxide 34.0 H Anion Gap 6 BUN 24 H Creatinine 1.24 Estimated GFR 62 L Random Glucose 106 Calcium 8.8 Magnesium 2.2 Total Bilirubin 1.4 H Direct Bilirubin 0.6 H Indirect Bilirubin 0.8 AST 71 H ALT 712 H Alkaline Phosphatase 108 Total Protein 7.0 Albumin 3.1 L - Procedures None Assessment and Plan - Assessment (1) Nonischemic cardiomyopathy Code(s): I42.8 - Other cardiomyopathies Status: Chronic (2) Nonsustained ventricular tachycardia Code(s): I47.2 - Ventricular tachycardia Status: Acute (3) Atrial fibrillation Code(s): I48.91 - Unspecified atrial fibrillation Status: Acute (4) Elevated troponin Code(s): R74.8 - Abnormal levels of other serum enzymes Status: Acute - Plan Nonischemic cardiomyopathy -Currently on Toprol-XL 100 mg twice daily, aspirin -CHENTE inhibitor currently on hold secondary to BRIAN -Management per cardiology Nonsustained ventricular tachycardia IV amiodarone discontinued July 31, 2018 secondary to worsening LFTs. -He will require LifeVest prior to discharge. Case management assistance appreciated. -Currently on Toprol-XL 100 mg twice daily with holding parameter -Management per cardiology -telemetry. Atrial fibrillation with RVR Rate controlled. -Currently on beta-jordan, Eliquis -Management per cardiology Acute systolic congestive heart failure -Currently on PO Bumex. Lasix has been discontinued -Continue with beta-jordan Acute kidney injury Renal indices significantly improving. -Management per nephrology. On PO Bumex. Transaminitis Secondary to amiodarone which was discontinued 07/31/18 -LFTs significantly trending down. Monitor LFTs. Leukocytosis Improving. Afebrile. Asymptomatic. -trend. Improving. PPx: Eliquis (3) Atrial fibrillation Qualifiers: Atrial fibrillation type: paroxysmal Qualified Code(s): I48.0 - Paroxysmal atrial fibrillation
[2018-08-05 12:36] VITALS: BP 90/62; PULSE 96; RESP 16; TEMP 97.6; O2SAT 97
--- NOTE | 2018-08-05 13:08 | P.DS ---
Date of admission: 07/27/18 22:53 Primary care physician: UNKNOWN Anticipated date of discharge: 08/05/18 Brief History from admission: 47-year-old male with a past medical history significant for atrial fibrillation , coronary artery disease and CHF presents to the emergency department for the evaluation of bilateral lower extremity edema and shortness of breath with accompanying cough. The patient reports that he is supposed to be on Eliquis, metoprolol and Lasix however has been out of his medication for approximately 4 months due to insurance issues. He states he has had increasingly worsening bilateral lower extremity edema for the past week and corresponding shortness of breath with a nonproductive cough. He states he has chest pain but believes this is from his cough. His teleprinter is in [place]. He is found to be in atrial fibrillation with RVR on his arrival to the emergency department. He denies any fevers/chills. No abdominal pain. No nausea/vomiting/diarrhea. No focal neurologic deficits. DS: Diagnosis - Discharge Diagnosis (1) Nonischemic cardiomyopathy Status: Chronic (2) Nonsustained ventricular tachycardia Status: Acute (3) Atrial fibrillation Status: Acute (4) Elevated troponin Status: Acute DS: Medications - Discharge Medications Prescriptions: apixaban [Eliquis] 5 mg PO BID #60 tab aspirin 81 mg PO DAILY #30 tab bumetanide 1 mg PO BID #60 tab metoprolol tartrate 100 mg PO BID #60 tab DS: Summary Hospital Course: Acute on chronic nonischemic cardiomyopathy/Nonsustained ventricular tachycardia /Atrial fibrillation with RVR EKG revealed A fib with RVR. Troponins were elevated. CXR unremarkable. Cardiology was consulted. He was monitored on telemetry. IV amiodarone was discontinued secondary to worsening LFTs. He was continued on metoprolol 100 mg twice daily, Eliquis and aspirin. CHENTE inhibitor currently on hold secondary to acute kidney injury. Echo showed: The left ventricular systolic function is severely reduced with an estimated ejection fraction less than 20%; There is diffuse global hypokinesis with distinct regional wall motion abnormalities. Diuresis was switched to PO Bumex. A LifeVest was recommended and was arranged for the pt. He will follow up with cardiology upon discharge. Acute kidney injury Nephrology was consulted. Diuretics were changed to PO Bumex and his kidney function continued to improve. He will follow up with nephrology as an outpt. Transaminitis Secondary to amiodarone which was discontinued 07/31/18. LFTs have been significantly trending down. - Time Spent with Patient Total time spent providing and/or coordinating discharge services: Greater than 30 minutes - Quality: VTE Deep Vein Thrombosis/Pulmonary Embolism Present on Admission: No Exam Vital signs: Vital Signs 08/04/18 14:00 08/04/18 14:39 08/04/18 15:00 Temperature 97.4 F L Pulse Rate 98 H 90 83 Respiratory Rate 20 Blood Pressure 104/67 Pulse Oximetry 95 08/04/18 16:00 08/04/18 17:27 08/04/18 19:00 Temperature 97.9 F Pulse Rate 101 H 94 H 95 H Respiratory Rate 20 Blood Pressure 114/83 Pulse Oximetry 95 08/04/18 20:00 08/04/18 21:00 08/04/18 22:00 Temperature Pulse Rate 100 H 98 H 100 H Respiratory Rate Blood Pressure Pulse Oximetry 98 08/04/18 23:00 08/04/18 23:13 08/05/18 01:00 Temperature 97.7 F Pulse Rate 85 100 H 93 H Respiratory Rate 20 Blood Pressure 101/63 Pulse Oximetry 95 08/05/18 02:00 08/05/18 03:00 08/05/18 04:00 Temperature 97.7 F Pulse Rate 94 H 89 89 Respiratory Rate 18 Blood Pressure 97/65 L Pulse Oximetry 95 08/05/18 05:00 08/05/18 06:00 08/05/18 07:00 Temperature 97.5 F L Pulse Rate 81 95 H 100 H Respiratory Rate Blood Pressure 103/61 Pulse Oximetry 94 L 08/05/18 08:00 08/05/18 09:00 08/05/18 10:00 Temperature Pulse Rate 94 H 84 86 Respiratory Rate Blood Pressure Pulse Oximetry 95 08/05/18 11:00 08/05/18 12:00 Temperature 97.6 F Pulse Rate 78 96 H Respiratory Rate 16 Blood Pressure 90/62 L Pulse Oximetry 97 Intake & Output 08/04/18 08/05/18 08/05/18 18:59 06:59 18:59 Intake Total 960 / 960 720 / 720 Output Total 900 / 900 1825 / 1825 Balance 60 / 60 -1105 / -1105 Weight 129.5 kg Intake: Oral 960 / 960 720 / 720 Output: Urine 900 / 900 1825 / 1825 Other: Date of Last Bowel Movement 08/03/18 08/03/18 08/04/18 # Bowel Movements 0 Narrative: GENERAL: NAD and lying in bed. SKIN: Warm and dry. HEAD: Normocephalic. EYES: No scleral icterus. No injection or drainage. NECK: Supple, trachea midline. No JVD or lymphadenopathy. CARDIOVASCULAR: Irregular regular rate and rhythm without murmurs, gallops, or rubs. RESPIRATORY: Breath sounds equal bilaterally. No accessory muscle use. GASTROINTESTINAL: Abdomen soft, non-tender, nondistended. MUSCULOSKELETAL: No cyanosis, or edema. BACK: Nontender without obvious deformity. No CVA tenderness. Results Procedures completed during hospitalization: None Labs on day of discharge: Labs from last 24 hours 08/05/18 08/05/18 03:35 03:35 WBC 11.7 H RBC 5.35 Hgb 16.8 Hct 49.3 MCV 92.1 MCH 31.4 MCHC 34.1 RDW 15.2 Plt Count 125 L MPV 9.3 Neut % (Auto) 63.4 Lymph % (Auto) 20.5 [place] % (Auto) 13.3 H Eos % (Auto) 2.2 Baso % (Auto) 0.6 Neut # (Auto) 7.4 Lymph # (Auto) 2.4 [place] # (Auto) 1.5 H Eos # (Auto) 0.3 Baso # (Auto) 0.1 WBC Differential . Differential Comment Auto diff final Sodium 139 Potassium 3.8 Chloride 99 Carbon Dioxide 34.0 H Anion Gap 6 BUN 24 H Creatinine 1.24 Estimated GFR 62 L Random Glucose 106 Calcium 8.8 Magnesium 2.2 Total Bilirubin 1.4 H Direct Bilirubin 0.6 H Indirect Bilirubin 0.8 AST 71 H ALT 712 H Alkaline Phosphatase 108 Total Protein 7.0 Albumin 3.1 L - Impressions ITS Impressions Abdomen/Bladder Ultrasound 07/29/18 00:00 CONCLUSION: 1. Normal renal ultrasound Chest X-Ray 07/29/18 05:32 CONCLUSION: The lungs are clear. Abdomen MRI 07/31/18 00:00 CONCLUSION: Negative noncontrast MRI examination. Discharge Plan - Discharge Disposition Patient Disposition: Discharge Home - Discharge Condition Condition: Stable - Discharge Order Discharge Orders: Discharge Order (Routine); Ordered 08/05/18 Ordered By: Laron Tejada ED Use Only Admit Order (Routine); Ordered 07/27/18 Ordered By: Roberta Hernandez - Discharge Details Anticipated Discharge Date: 08/05/18 Discharge Comment: OK to discharge when LifeVest is set-up, thanks - Physicians Team Primary Care Provider: UNKNOWN, Attending Provider: Laron Tejada Other Providers: Tyson Summers DO ; Andrea Hector MD
--- NOTE | 2018-08-05 21:06 | P.PNNP ---
Subjective Interval history: Patient seen in AM, no SOB, remain on room air. Physical Exam Vital signs: Vital Signs 08/04/18 22:00 08/04/18 23:00 08/04/18 23:13 Temperature 97.7 F Pulse Rate 100 H 85 100 H Respiratory Rate 20 Blood Pressure 101/63 Pulse Oximetry 95 08/05/18 01:00 08/05/18 02:00 08/05/18 03:00 Temperature 97.7 F Pulse Rate 93 H 94 H 89 Respiratory Rate 18 Blood Pressure 97/65 L Pulse Oximetry 95 08/05/18 04:00 08/05/18 05:00 08/05/18 06:00 Temperature Pulse Rate 89 81 95 H Respiratory Rate Blood Pressure Pulse Oximetry 08/05/18 07:00 08/05/18 08:00 08/05/18 09:00 Temperature 97.5 F L Pulse Rate 100 H 94 H 84 Respiratory Rate Blood Pressure 103/61 Pulse Oximetry 94 L 95 08/05/18 10:00 08/05/18 11:00 08/05/18 12:00 Temperature 97.6 F Pulse Rate 86 78 96 H Respiratory Rate 16 Blood Pressure 90/62 L Pulse Oximetry 97 08/05/18 13:00 Temperature Pulse Rate 96 H Respiratory Rate Blood Pressure Pulse Oximetry Intake & Output 08/05/18 08/05/18 08/06/18 06:59 18:59 06:59 Intake Total 720 / 720 Output Total 1825 / 1825 Balance -1105 / -1105 Weight 129.5 kg Intake: Oral 720 / 720 Output: Urine 1825 / 1825 Other: Date of Last Bowel Movement 08/03/18 08/04/18 Narrative: GENERAL: NAD and lying in bed. SKIN: Warm and dry. HEAD: Normocephalic. EYES: No scleral icterus. No injection or drainage. NECK: Supple, trachea midline. No JVD or lymphadenopathy. CARDIOVASCULAR: Irregular regular rate and rhythm without murmurs, gallops, or rubs. RESPIRATORY: Breath sounds equal bilaterally. No accessory muscle use. GASTROINTESTINAL: Abdomen soft, non-tender, nondistended. MUSCULOSKELETAL: No cyanosis, or edema. BACK: Nontender without obvious deformity. No CVA tenderness. Assessment and Plan - Assessment (1) BRIAN (acute kidney injury) Code(s): N17.9 - Acute kidney failure, unspecified Status: Acute Plan: ASSESSMENT AND PLAN: 1. Acute kidney injury. 2. Atrial fibrillation with rapid ventricular rate. 3. Congestive heart failure. 4. Fluid overload status. 5. Hypotension. 6. Shock liver with elevated liver enzymes. BRIAN secondary to hypotension, with underlying cardio-renal component EF < 20% Possible non-oliguric ATN Elevated LFTs suggestive of shock liver Creatinine is stable 1.29 On Bumex to 1 mg BID, Continue same dose for now. K is normal, avoid Nephrotoxins. Patient for discharge, to continue same dose of Bumex. Follow up with cardiology and PCP. I will follow him in 1 month. (2) Atrial fibrillation Code(s): I48.91 - Unspecified atrial fibrillation Status: Acute Qualifiers: Atrial fibrillation type: paroxysmal Qualified Code(s): I48.0 - Paroxysmal atrial fibrillation Plan: on amiodarone, follow with cardiology
== END 2018-08-05 15:48 | disposition home or self-care (01) | DRG 291 ==
LOC: NEPE 20:33 → NEDA 22:53 → HCVI 07-28 03:30 → HCPC 07-29 20:15
PROVIDERS: ADMIT Hospitalist; ATTEND Hospitalist
DX: T46.2X5A Adverse effect of other antidysrhythmic drugs, initial encounter; I25.10 Atherosclerotic heart disease of native coronary artery without angina pectoris; I24.8 Other forms of acute ischemic heart disease; I95.9 Hypotension, unspecified; N17.0 Acute kidney failure with tubular necrosis; I48.0 Paroxysmal atrial fibrillation; I47.2 Ventricular tachycardia; F17.210 Nicotine dependence, cigarettes, uncomplicated; K72.00 Acute and subacute hepatic failure without coma; Z91.120 Patient's intentional underdosing of medication regimen due to financial hardship; Z82.49 Family history of ischemic heart disease and other diseases of the circulatory system; E87.6 Hypokalemia; I50.23 Acute on chronic systolic (congestive) heart failure; D72.829 Elevated white blood cell count, unspecified; N18.9 Chronic kidney disease, unspecified; I42.8 Other cardiomyopathies; E87.3 Alkalosis; I13.0 Hypertensive heart and chronic kidney disease with heart failure and stage 1 through stage 4 chronic kidney disease, or unspecified chronic kidney disease
CPT/HCPCS: 36600; 71010; 71045; 74181; 76775; 76937; 80048; 80053; 80307; 81001; 82140; 82248; 82550; 82805; 83520; 83735; 83880; 83935; 84300; 84484; 85025; 85379; 85610; 85730; 90774; 90775; 90784; 93005; 93306; 94618; 94620; 94640; 94664; 94665; 96374; 96375; 99285; C8952; J0282; J1644; J1940; J2270; J2405; J7030; J7060; S0171